=== PATIENT | female | born 1985 | race Caucasian/White ===

== ENCOUNTER 2019-10-21 11:34 | Emergency (ER) | payer OTHER ==
[2019-10-21 11:42] VITALS: RESP 18
--- NOTE | 2019-10-21 12:13 | ED ---
Abdominal Pain HPI - General Chief Complaint: Abdominal Pain Stated Complaint: hip pain Time Seen by Provider: 10/21/19 12:08 Source: patient Mode of arrival: ambulatory Limitations: no limitations - History of Present Illness Initial Comments: Patient is a 34-year-old female presenting to emergency Department with a chief complaint of right hip pain. Patient reports this started about 4 days ago with gradual increase in severity. States she also saw chiropractor who adjusted her hip with only moderate improvement in symptoms. States the pain is exacerbated when standing and ambulation. States the pain is alleviated at rest. Denies any direct trauma to the region. States she is very active and squats at least twice per week. Denies any numbness or tingling. Denies any urinary or vaginal symptoms. Denies any history of femoral or inguinal hernias. Denies saddle anesthesia. Denies back pain abdominal pain. - Related Data Home Medications Medication Instructions Recorded Confirmed No Known Home Medications 03/23/16 03/23/16 Allergies Allergy/AdvReac Type Severity Reaction Status Date / Time No Known Allergies Allergy Verified 10/21/19 11:42 Review of Systems ROS Statement: Those systems with pertinent positive or pertinent negative responses have been documented in the HPI. ROS Other: All systems not noted in ROS Statement are negative. Past Medical History Past Medical History: No Reported History Additional Past Medical History / Comment(s): Hep C History of Any Multi-Drug Resistant Organisms: MRSA Date of last positivie culture/infection: 2006 MDRO Source:: left leg Past Surgical History: No Surgical Hx Reported Additional Past Surgical History / Comment(s): lung surgery 2019 Past Psychological History: No Psychological Hx Reported Smoking Status: Former smoker Past Alcohol Use History: Occasional Past Drug Use History: Heroin General Exam Limitations: no limitations General appearance: alert, in no apparent distress Head exam: Present: atraumatic, normocephalic, normal inspection Eye exam: Present: normal appearance, PERRL, EOMI Pupils: Present: normal accommodation ENT exam: Present: normal exam, normal oropharynx, mucous membranes moist Neck exam: Present: normal inspection, full ROM Respiratory exam: Present: normal lung sounds bilaterally. Absent: respiratory distress, wheezes Cardiovascular Exam: Present: regular rate, normal rhythm, normal heart sounds GI/Abdominal exam: Present: soft. Absent: distended, hernia (No signs of a femoral or inguinal hernia. No inguinal lymph nodes appreciated.) Extremities exam: Present: normal inspection (No signs of swelling in the right groin or hip region. No other signs of trauma.), tenderness (Tenderness on the anterior medial aspect of the right hip.), normal capillary refill, other (+2 dorsalis pedis and posterior tibials bilaterally.). Absent: full ROM (Limited active range of motion with hip flexion due to pain. Full passive range of motion.), pedal edema, joint swelling, calf tenderness Back exam: Present: normal inspection, full ROM Neurological exam: Present: alert, oriented X3 Psychiatric exam: Present: normal affect, normal mood Skin exam: Present: warm, dry, intact, normal color Course Vital Signs 10/21/19 10/21/19 11:38 14:14 Temperature 98.7 F 98.3 F Pulse Rate 102 H 97 Respiratory 18 18 Rate Blood Pressure 119/72 122/68 O2 Sat by Pulse 98 98 Oximetry Medical Decision Making - Medical Decision Making Patient is a 34-year-old male presenting to the emergency room with a chief complaint of right hip pain. X-rays unremarkable. Patient was given Toradol for pain with improvement in symptoms and reevaluation. On exam patient has no signs of acute trauma, femoral hernias. Full passive range of motion. Limited active range of motion with right hip flexion due to the pain. Patient is very physically active. I suspect the symptoms are related to intensive physical workouts. Advised the patient to follow with PCP for possible physical therapy. Advised the patient to take anti-inflammatories for the pain and apply ice compress to the region. Advised her to avoid exercises for next week. Return parameters were thoroughly discussed with patient is understanding and agreeable. Case discussed with physician. Disposition Clinical Impression: Right hip tendinitis Disposition: HOME SELF-CARE Condition: Stable Instructions (If sedation given, give patient instructions): Tendinitis (ED) Additional Instructions: Apply ice compress an alternate between Tylenol and Motrin for pain control. Return to emergency department if symptoms worsen. Follow with primary care. Is patient prescribed a controlled substance at d/c from ED?: No Referrals: Domingo Ellison MD [Primary Care Provider] - 1-2 days Time of Disposition: 13:48
[2019-10-21] MEDS ORDERED: KETOROLAC 30 MG/ML 1 ML VIAL IM STA (12:26)
--- NOTE | 2019-10-21 12:47 | XR ---
EXAMINATION TYPE: XR Hip Complete RT DATE OF EXAM: 10/21/2019 COMPARISON: None HISTORY: Pain TECHNIQUE: 2 view right hip FINDINGS: Femoral head articulates with the acetabulum. Joint spaces preserved. No acute fractures or dislocations are evident. IMPRESSION: 1. Normal 2 view right hip
[2019-10-21 14:16] VITALS: BP 122/68; PULSE 97; TEMP 98.3
== END 2019-10-21 14:16 | disposition home or self-care (01) ==
LOC: EC 11:34
DX: M76.9 Unspecified enthesopathy, lower limb, excluding foot (principal); Z86.14 Personal history of Methicillin resistant Staphylococcus aureus infection; Z87.891 Personal history of nicotine dependence
CPT/HCPCS: 73502; 96372; 99284; J1885

== ENCOUNTER 2019-11-02 13:54 | Observation (INO) | payer OTHER ==
[2019-11-02] MEDS ORDERED: SODIUM CHLORIDE 0.9% 1,000 ML IV STA ×2 (14:25→15:19)
[2019-11-02] MEDS ORDERED: METOCLOPRAMIDE 5 MG/ML 2 ML VIAL IVP STA ×2 (14:25→16:55)
--- NOTE | 2019-11-02 14:52 | ED ---
Nausea/Vomiting/Diarrhea HPI - General Source: patient Mode of arrival: wheelchair Limitations: no limitations <Hilda Iglesias - Last Filed: 11/05/19 15:15> <Lucy Fields - Last Filed: 11/10/19 13:17> - General Chief complaint: Nausea/Vomiting/Diarrhea Stated complaint: 4weeks pg N/V Time Seen by Provider: 11/02/19 14:02 - History of Present Illness Initial comments: Patient is a 34-year-old female presenting to the emergency Department with complaints of severe nausea and vomiting for the past 4 days. She states that she just found out she was and has been trying to detox herself off of heroin as well. She states the last 4 days she has been vomiting and not able to hold anything down. She admits to some abdominal cramping but no severe pain, no vaginal bleeding. She states she took a home test. She denies any fever, chills, chest pain, shortness of breath. She has no further complaints at this time. (Hilda Iglesias) - Related Data Home Medications Medication Instructions Recorded Confirmed No Known Home Medications 03/23/16 11/02/19 Allergies Allergy/AdvReac Type Severity Reaction Status Date / Time No Known Allergies Allergy Verified 11/02/19 21:22 Review of Systems ROS Other: All systems not noted in ROS Statement are negative. <Hilda Iglesias - Last Filed: 11/05/19 15:15> ROS Other: All systems not noted in ROS Statement are negative. <Lucy Fields - Last Filed: 11/10/19 13:17> ROS Statement: Those systems with pertinent positive or pertinent negative responses have been documented in the HPI. Past Medical History Past Medical History: No Reported History Additional Past Medical History / Comment(s): Hep C History of Any Multi-Drug Resistant Organisms: MRSA Date of last positivie culture/infection: 2006 MDRO Source:: left leg Past Surgical History: No Surgical Hx Reported Additional Past Surgical History / Comment(s): lung surgery 2019 Past Psychological History: No Psychological Hx Reported Smoking Status: Former smoker Past Alcohol Use History: Occasional Past Drug Use History: Heroin, Marijuana - Past Family History family Family Medical History: No Reported History <Hilda Iglesias - Last Filed: 11/05/19 15:15> General Exam Limitations: no limitations <Hilda Iglesias - Last Filed: 11/05/19 15:15> - General Exam Comments Initial Comments: GENERAL: Patient looks, fatigued, and actively dry heaving in the ER. HEAD: Atraumatic, normocephalic. EYES: Pupils equal round and reactive to light, extraocular movements intact, sclera anicteric, conjunctiva are normal. ENT: TMs normal, nares patent, oropharynx clear without exudates. Dry mucous mem branes. NECK: Normal range of motion, supple without lymphadenopathy or JVD. LUNGS: Breath sounds clear to auscultation bilaterally and equal. No wheezes rales or rhonchi. HEART: Regular rate and rhythm without murmurs, rubs or gallops. ABDOMEN: Mild generalized abdominal tenderness, no specific pain in any quadrant. Soft, normoactive bowel sounds. No guarding, no rebound. No masses appreciated. : Deferred EXTREMITIES: Normal range of motion, no pitting or edema. No clubbing or cyanosis. NEUROLOGICAL: Cranial nerves II through XII grossly intact. Normal speech, normal gait. PSYCH: Normal mood, normal affect. SKIN: Warm, Dry, normal turgor, no rashes or lesions noted. (Hilda Iglesias) Course Vital Signs 11/02/19 11/02/19 11/02/19 13:59 14:30 17:07 Temperature 97.8 F Pulse Rate 83 69 86 Respiratory 20 26 H 22 Rate Blood Pressure 125/75 122/55 133/63 O2 Sat by Pulse 97 100 99 Oximetry 11/02/19 11/02/19 18:54 20:51 Temperature 99.4 F Pulse Rate 68 79 Respiratory 18 16 Rate Blood Pressure 119/70 103/66 O2 Sat by Pulse 100 98 Oximetry Medical Decision Making - Lab Data Result diagrams: 11/02/19 14:42 11/02/19 14:42 <Hilda Iglesias - Last Filed: 11/05/19 15:15> - Lab Data Result diagrams: 11/02/19 14:42 11/02/19 14:42 <Lucy Fields - Last Filed: 11/10/19 13:17> - Medical Decision Making Patient is a 34-year-old female here for nausea and vomiting 4 days. Patient was signed out to Dr. Fields pending US results. (Hilda Iglesias) I evaluated the patient myself. She does arrive and is given 2 doses of Reglan. She is given a popsicle and continues to vomit. Therefore she is given a dose of Zofran. The patient is sent for ultrasound. It does demonstrate a viable intrauterine with 6 weeks, 5 days gestational age. Heart rate is 127. I did discuss the case with Dr. Pedroza who recommended medical admission with her to consult. I discussed the case with sound physicians accepted admission. Patient is currently awaiting a bed on the floor (Lucy Fields) - Lab Data Lab Results 11/02/19 11/02/19 11/02/19 Range/Units 14:42 14:42 14:42 WBC 11.1 H (3.8-10.6) k/uL RBC 3.86 (3.80-5.40) m/uL Hgb 11.5 (11.4-16.0) gm/dL Hct 35.3 (34.0-46.0) % MCV 91.6 (80.0-100.0) fL MCH 29.7 (25.0-35.0) pg MCHC 32.4 (31.0-37.0) g/dL RDW 12.2 (11.5-15.5) % Plt Count 729 H (150-450) k/uL Neutrophils % 89 % Lymphocytes % 8 % Monocytes % 2 % Eosinophils % 0 % Basophils % 0 % Neutrophils # 9.8 H (1.3-7.7) k/uL Lymphocytes # 0.9 L (1.0-4.8) k/uL Monocytes # 0.2 (0-1.0) k/uL Eosinophils # 0.0 (0-0.7) k/uL Basophils # 0.0 (0-0.2) k/uL Sodium 133 L (137-145) mmol/L Potassium 4.2 (3.5-5.1) mmol/L Chloride 97 L (98-107) mmol/L Carbon Dioxide 20 L (22-30) mmol/L Anion Gap 16 mmol/L BUN 23 H (7-17) mg/dL Creatinine 0.55 (0.52-1.04) mg/dL Est GFR (CKD-EPI)AfAm >90 (>60 ml/min/1.73 sqM) Est GFR (CKD-EPI)NonAf >90 (>60 ml/min/1.73 sqM) Glucose 168 H (74-99) mg/dL Lactic Ac Sepsis Rflx Plasma Lactic Acid Dewayne 3.2 H* (0.7-2.0) mmol/L Calcium 9.8 (8.4-10.2) mg/dL Total Bilirubin 0.6 (0.2-1.3) mg/dL AST 21 (14-36) U/L ALT 13 (4-34) U/L Alkaline Phosphatase 73 (38-126) U/L Total Protein 8.1 (6.3-8.2) g/dL Albumin 4.3 (3.5-5.0) g/dL HCG, Quant 67710.6 mIU/mL Urine Color Urine Appearance (Clear) Urine pH (5.0-8.0) Ur Specific Ransom (1.001-1.035) Urine Protein (Negative) Urine Glucose (UA) (Negative) Urine Ketones (Negative) Urine Blood (Negative) Urine Nitrite (Negative) Urine Bilirubin (Negative) Urine Urobilinogen (<2.0) mg/dL Ur Leukocyte Esterase (Negative) Urine RBC (0-5) /hpf Urine WBC (0-5) /hpf Ur Squamous Epith Cells (0-4) /hpf Urine Bacteria (None) /hpf Urine Mucus (None) /hpf Urine Opiates Screen (NotDetected) Ur Oxycodone Screen (NotDetected) Urine Methadone Screen (NotDetected) Ur Propoxyphene Screen (NotDetected) Ur Barbiturates Screen (NotDetected) U Tricyclic Antidepress (NotDetected) Ur Phencyclidine Scrn (NotDetected) Ur Amphetamines Screen (NotDetected) U Methamphetamines Scrn (NotDetected) U Benzodiazepines Scrn (NotDetected) Urine Cocaine Screen (NotDetected) U Marijuana (THC) Screen (NotDetected) Blood Type Blood Type Recheck Bld Type Recheck Status 11/02/19 11/02/19 11/02/19 Range/Units 14:42 15:16 16:29 WBC (3.8-10.6) k/uL RBC (3.80-5.40) m/uL Hgb (11.4-16.0) gm/dL Hct (34.0-46.0) % MCV (80.0-100.0) fL MCH (25.0-35.0) pg MCHC (31.0-37.0) g/dL RDW (11.5-15.5) % Plt Count (150-450) k/uL Neutrophils % % Lymphocytes % % Monocytes % % Eosinophils % % Basophils % % Neutrophils # (1.3-7.7) k/uL Lymphocytes # (1.0-4.8) k/uL Monocytes # (0-1.0) k/uL Eosinophils # (0-0.7) k/uL Basophils # (0-0.2) k/uL Sodium (137-145) mmol/L Potassium (3.5-5.1) mmol/L Chloride (98-107) mmol/L Carbon Dioxide (22-30) mmol/L Anion Gap mmol/L BUN (7-17) mg/dL Creatinine (0.52-1.04) mg/dL Est GFR (CKD-EPI)AfAm (>60 ml/min/1.73 sqM) Est GFR (CKD-EPI)NonAf (>60 ml/min/1.73 sqM) Glucose (74-99) mg/dL Lactic Ac Sepsis Rflx Y Plasma Lactic Acid Dewayne (0.7-2.0) mmol/L Calcium (8.4-10.2) mg/dL Total Bilirubin (0.2-1.3) mg/dL AST (14-36) U/L ALT (4-34) U/L Alkaline Phosphatase (38-126) U/L Total Protein (6.3-8.2) g/dL Albumin (3.5-5.0) g/dL HCG, Quant mIU/mL Urine Color Yellow Urine Appearance Cloudy H (Clear) Urine pH 6.5 (5.0-8.0) Ur Specific Ransom 1.024 (1.001-1.035) Urine Protein 1+ H (Negative) Urine Glucose (UA) Negative (Negative) Urine Ketones 4+ H (Negative) Urine Blood Negative (Negative) Urine Nitrite Negative (Negative) Urine Bilirubin Negative (Negative) Urine Urobilinogen <2.0 (<2.0) mg/dL Ur Leukocyte Esterase Moderate H (Negative) Urine RBC 2 (0-5) /hpf Urine WBC 6 H (0-5) /hpf Ur Squamous Epith Cells 9 H (0-4) /hpf Urine Bacteria Rare H (None) /hpf Urine Mucus Rare H (None) /hpf Urine Opiates Screen Detected H (NotDetected) Ur Oxycodone Screen Not Detected (NotDetected) Urine Methadone Screen Not Detected (NotDetected) Ur Propoxyphene Screen Not Detected (NotDetected) Ur Barbiturates Screen Not Detected (NotDetected) U Tricyclic Antidepress Not Detected (NotDetected) Ur Phencyclidine Scrn Not Detected (NotDetected) Ur Amphetamines Screen Not Detected (NotDetected) U Methamphetamines Scrn Not Detected (NotDetected) U Benzodiazepines Scrn Not Detected (NotDetected) Urine Cocaine Screen Detected H (NotDetected) U Marijuana (THC) Screen Detected H (NotDetected) Blood Type A Positive Blood Type Recheck A Pos Bld Type Recheck Status No 11/02/19 Range/Units 17:35 WBC (3.8-10.6) k/uL RBC (3.80-5.40) m/uL Hgb (11.4-16.0) gm/dL Hct (34.0-46.0) % MCV (80.0-100.0) fL MCH (25.0-35.0) pg MCHC (31.0-37.0) g/dL RDW (11.5-15.5) % Plt Count (150-450) k/uL Neutrophils % % Lymphocytes % % Monocytes % % Eosinophils % % Basophils % % Neutrophils # (1.3-7.7) k/uL Lymphocytes # (1.0-4.8) k/uL Monocytes # (0-1.0) k/uL Eosinophils # (0-0.7) k/uL Basophils # (0-0.2) k/uL Sodium (137-145) mmol/L Potassium (3.5-5.1) mmol/L Chloride (98-107) mmol/L Carbon Dioxide (22-30) mmol/L Anion Gap mmol/L BUN (7-17) mg/dL Creatinine (0.52-1.04) mg/dL Est GFR (CKD-EPI)AfAm (>60 ml/min/1.73 sqM) Est GFR (CKD-EPI)NonAf (>60 ml/min/1.73 sqM) Glucose (74-99) mg/dL Lactic Ac Sepsis Rflx Plasma Lactic Acid Dewayne 1.2 (0.7-2.0) mmol/L Calcium (8.4-10.2) mg/dL Total Bilirubin (0.2-1.3) mg/dL AST (14-36) U/L ALT (4-34) U/L Alkaline Phosphatase (38-126) U/L Total Protein (6.3-8.2) g/dL Albumin (3.5-5.0) g/dL HCG, Quant mIU/mL Urine Color Urine Appearance (Clear) Urine pH (5.0-8.0) Ur Specific Ransom (1.001-1.035) Urine Protein (Negative) Urine Glucose (UA) (Negative) Urine Ketones (Negative) Urine Blood (Negative) Urine Nitrite (Negative) Urine Bilirubin (Negative) Urine Urobilinogen (<2.0) mg/dL Ur Leukocyte Esterase (Negative) Urine RBC (0-5) /hpf Urine WBC (0-5) /hpf Ur Squamous Epith Cells (0-4) /hpf Urine Bacteria (None) /hpf Urine Mucus (None) /hpf Urine Opiates Screen (NotDetected) Ur Oxycodone Screen (NotDetected) Urine Methadone Screen (NotDetected) Ur Propoxyphene Screen (NotDetected) Ur Barbiturates Screen (NotDetected) U Tricyclic Antidepress (NotDetected) Ur Phencyclidine Scrn (NotDetected) Ur Amphetamines Screen (NotDetected) U Methamphetamines Scrn (NotDetected) U Benzodiazepines Scrn (NotDetected) Urine Cocaine Screen (NotDetected) U Marijuana (THC) Screen (NotDetected) Blood Type Blood Type Recheck Bld Type Recheck Status Disposition <Hilda Iglesias - Last Filed: 11/05/19 15:15> Is patient prescribed a controlled substance at d/c from ED?: No Decision to Admit Reason: Admit from EC Decision Date: 11/02/19 Decision Time: 20:22 <Lucy Fields - Last Filed: 11/10/19 13:17> Clinical Impression: Intractable nausea and vomiting, First trimester , Polysubstance abuse Disposition: ADMITTED IP TO THIS HOSP Condition: Stable
[2019-11-02 14:55] LABS: Basophils % (A) 0 %; Eosinophils % (A) 0 %; HCT 35.3 % (34.0-46.0); HGB 11.5 gm/dL (11.4-16.0); Lymphocytes # (A) 0.9 k/uL (1.0-4.8); Lymphocytes % (A) 8 %; MCH 29.7 pg (25.0-35.0); MCHC 32.4 g/dL (31.0-37.0); MCV 91.6 fL (80.0-100.0); Mean Platelet Volume 6.7; Monocytes # (A) 0.2 k/uL (0-1.0); Monocytes % (A) 2 %; Neutrophils # (A) 9.8 k/uL (1.3-7.7); Neutrophils % (A) 89 %; Platelet Count 729 k/uL (150-450); RBC 3.86 m/uL (3.80-5.40); RDW 12.2 % (11.5-15.5); WBC 11.1 k/uL (3.8-10.6)
[2019-11-02 15:04] LABS: ALT 13 U/L (4-34); AST 21 U/L (14-36); African American GFR (CKD) >90 (>60 ml/min/1.73 sqM); Albumin 4.3 g/dL (3.5-5.0); Alkaline Phosphatase 73 U/L (38-126); Anion Gap 16 mmol/L; Blood Urea Nitrogen 23 mg/dL (7-17); Calcium 9.8 mg/dL (8.4-10.2); Carbon Dioxide 20 mmol/L (22-30); Chloride 97 mmol/L (98-107); Glucose 168 mg/dL (74-99); Non-African American GFR(CKD) >90 (>60 ml/min/1.73 sqM); Potassium 4.2 mmol/L (3.5-5.1); Sodium 133 mmol/L (137-145); Total Bilirubin 0.6 mg/dL (0.2-1.3); Total Protein 8.1 g/dL (6.3-8.2)
[2019-11-02 16:18] LABS: HCG,Quantitative Serum 83013.6 mIU/mL
[2019-11-02 16:57] LABS: Appearance,Urine Cloudy (Clear); Bacteria,Urine Rare /hpf; Bilirubin,Urine Negative (Negative); Blood,Urine Negative (Negative); Color,Urine Yellow; Glucose,Urine (UA) Negative (Negative); Leukocyte Esterase,Urine Moderate (Negative); Mucus,Urine Rare /hpf; Nitrite,Urine Negative (Negative); PH, Urine 6.5 (5.0-8.0); Protein,Urine 1+ (Negative); RBC,Urine 2 /hpf (0-5); Specific Gravity,Urine 1.024 (1.001-1.035); Squamous Epithelial Cell,Urine 9 /hpf (0-4); Urobilinogen,Urine <2.0 mg/dL (<2.0); WBC,Urine 6 /hpf (0-5)
[2019-11-02 17:12] LABS: Cocaine Screen,Urine Detected (NotDetected); Opiate Screen,Urine Detected (NotDetected); Phencyclidine Screen,Urine Not Detected (NotDetected); Urn Cannabinoid Scrn Detected (NotDetected)
[2019-11-02 17:13] LABS: Amphetamine Screen,Urine Not Detected (NotDetected); Barbiturate Screen,Urine Not Detected (NotDetected); Benzodiazepines Screen,Urine Not Detected (NotDetected); Methadone Screen, Urine Not Detected (NotDetected); Oxycodone Screen, Urine Not Detected (NotDetected); Tricyclic Antidepressant,Urine Not Detected (NotDetected)
[2019-11-02 17:21] LABS: Ketones,Urine 4+ (Negative)
[2019-11-02] MEDS ORDERED: ONDANSETRON 4 MG/2 ML VIAL IVP STA (18:05)
--- NOTE | 2019-11-02 19:24 | US ---
EXAMINATION TYPE: Transabdominal DATE OF EXAM: 11/02/2019 7:13 PM COMPARISON: NONE CLINICAL HISTORY: n/v, cramping, unsure dates. EXAM PERFORMED: Transabdominal (TA) EXAM MEASUREMENTS: GESTATIONAL AGE / DATING Physician Established: Not yet established Dates by LMP: LMP unknown Dates by First Scan: No previous this is first scan Dates by Current Scan for: (6 weeks/5 days) EDC: 06/22/2020 MATERNAL ANATOMY Uterus: 9.5 x 5.7 x 7.5 cm Right Ovary: 3.2 x .8 x 1.8 cm Left Ovary: 3.7 x 1.8 x 2.4 cm Post CDS / Adnexa: wnl Presence of free fluid: no Presence of corpus luteal cyst: yes left Presence of subchorionic bleed: no GESTATION / SURVEY CRL: 0.81 cm (6 weeks/5 days Yolk Sac (normal less than 6mm): 3mm Heart Rate: 127 bpm Rhythm: Normal IUP: Viable IUP Beta HcG (if available): Not available at this time IMPRESSION: The heart rate is 127. No complicating process seen. the ultrasound gestational age is 6 weeks and 5 days.
[2019-11-02] MEDS ORDERED: NALOXONE 0.4 MG/ML 1 ML VIAL IV PRN (20:23)
[2019-11-02] MEDS: SODIUM CHLORIDE 0.9% 1,000 ML IV SCH (20:48)
[2019-11-02 21:42] VITALS: RESP 18
[2019-11-02] MEDS ORDERED: ONDANSETRON 4 MG/2 ML VIAL IVP PRN (22:34)
[2019-11-02] MEDS ORDERED: PYRIDOXINE 50 MG TAB PO PRN (23:27)
--- NOTE | 2019-11-02 23:46 | P.HPIM ---
History of Present Illness H&P Date: 11/02/19 Chief Complaint: repeated nausea and vomiting 34 year old female with polysubstance abuse . and Hepatitis C patient has just found out to be preganant , which was confirmed with US in the ED , showing at 6 w and 5 days. patient reports 5 day history of severe nausea and vomiting, she cant keep anything down, with decrease urine output, this is her second , during her first no similar nausea and vomtiing was experienced, was uncomplicated, healthy baby girl adopted by her mother. this was not desired or planned for, she knows the father who is not supportive at this time, but she wants to continue the . she admits to polysubstance abuse, and wants to detox. her last usage was today when she used heroin, she also tested positive for cocaine and marijuana. she denies smoking and alcohol otherwise she denies any fever, chills, sick contact, recent travel, abd pain , chest pain , trouble breathing, or coughing. denies any vaginal discharge or bleeding. in the ED , she had elevated lactic acid and ketones in the urine even after hydration . patient continued to have refractory nausea and vomiting , admitted due to dehydration. Review of Systems Pertinent positives as noted in HPI. All other systems were reviewed and are negative Past Medical History Past Medical History: No Reported History Additional Past Medical History / Comment(s): Hep C, endocarditis History of Any Multi-Drug Resistant Organisms: MRSA Date of last positivie culture/infection: 2006 MDRO Source:: left leg Past Surgical History: No Surgical Hx Reported Additional Past Surgical History / Comment(s): lung surgery 2019 Past Anesthesia/Blood Transfusion Reactions: No Reported Reaction Past Psychological History: No Psychological Hx Reported Smoking Status: Never smoker Past Alcohol Use History: Occasional Past Drug Use History: Heroin, Marijuana Additional Drug Use History / Comment(s): last used herion morning 11/02/19 - Past Family History family Family Medical History: No Reported History Medications and Allergies Home Medications Medication Instructions Recorded Confirmed Type No Known Home Medications 03/23/16 11/02/19 History Allergies Allergy/AdvReac Type Severity Reaction Status Date / Time No Known Allergies Allergy Verified 11/02/19 21:22 Physical Exam Vitals: Vital Signs Temp Pulse Pulse Resp BP BP Pulse Ox 11/02/19 21:41 99.6 F 76 18 101/50 100 06/14/20 20:51 99.4 F 79 16 103/66 98 11/02/19 18:54 68 18 119/70 100 11/02/19 17:07 86 22 133/63 99 11/02/19 14:30 69 26 H 122/55 100 11/02/19 13:59 97.8 F 83 20 125/75 97 Intake and Output 11/02/19 11/02/19 11/02/19 06:59 14:59 22:59 Other: Voiding Method Toilet Weight 61.235 kg Constitutional: No acute distress, conversant, pleasant Eyes: Anicteric sclerae, moist conjunctiva, Pupils equal round reactive to light ENMT: NC/AT Oropharynx clear, no erythema, or exudates Neck: Supple, FROM, no masses, or JVD No carotid bruits No thyromegaly Lungs: Clear to auscultation Clear to percussion Normal respiratory effort, no accessory muscle use Cardiovascular: Heart regular in rate and rhythm, No murmurs, gallops, or rubs No peripheral edema Abdominal: Soft Nontender, no guarding, rebound or rigidity Abdomen moving with respiration Normoactive bowel sounds No hepatomegaly, No splenomegaly No palpable mass No abdominal wall hernia noted Skin: Normal temperature, tone, texture, turgor No induration No subcutaneous nodules No rash, lesions No ulcers Extremities: No digital cyanosis No clubbing Pedal pulses intact and symmetrical Radial pulses intact and symmetrical No calf tenderness Psychiatric: Alert and oriented to person, place and time Appropriate affect fair judgement Neuro Muscles Strength 5/5 in all 4 extremities Sensation to light touch grossly present throughout Cranial nerves II-XII grossly intact No focal sensory deficits Lymphatics: no palpable cervical or supraclavicular , or inguinal lymph nodes Results CBC & Chem 7: 11/02/19 14:42 11/02/19 14:42 Labs: Abnormal Lab Results - Last 24 Hours (Table) 11/02/19 11/02/19 11/02/19 Range/Units 14:42 14:42 14:42 WBC 11.1 H (3.8-10.6) k/uL Plt Count 729 H (150-450) k/uL Neutrophils # 9.8 H (1.3-7.7) k/uL Lymphocytes # 0.9 L (1.0-4.8) k/uL Sodium 133 L (137-145) mmol/L Chloride 97 L (98-107) mmol/L Carbon Dioxide 20 L (22-30) mmol/L BUN 23 H (7-17) mg/dL Glucose 168 H (74-99) mg/dL Plasma Lactic Acid Dewayne 3.2 H* (0.7-2.0) mmol/L Urine Appearance (Clear) Urine Protein (Negative) Urine Ketones (Negative) Ur Leukocyte Esterase (Negative) Urine WBC (0-5) /hpf Ur Squamous Epith Cells (0-4) /hpf Urine Bacteria (None) /hpf Urine Mucus (None) /hpf Urine Opiates Screen (NotDetected) Urine Cocaine Screen (NotDetected) U Marijuana (THC) Screen (NotDetected) 11/02/19 Range/Units 16:29 WBC (3.8-10.6) k/uL Plt Count (150-450) k/uL Neutrophils # (1.3-7.7) k/uL Lymphocytes # (1.0-4.8) k/uL Sodium (137-145) mmol/L Chloride (98-107) mmol/L Carbon Dioxide (22-30) mmol/L BUN (7-17) mg/dL Glucose (74-99) mg/dL Plasma Lactic Acid Dewayne (0.7-2.0) mmol/L Urine Appearance Cloudy H (Clear) Urine Protein 1+ H (Negative) Urine Ketones 4+ H (Negative) Ur Leukocyte Esterase Moderate H (Negative) Urine WBC 6 H (0-5) /hpf Ur Squamous Epith Cells 9 H (0-4) /hpf Urine Bacteria Rare H (None) /hpf Urine Mucus Rare H (None) /hpf Urine Opiates Screen Detected H (NotDetected) Urine Cocaine Screen Detected H (NotDetected) U Marijuana (THC) Screen Detected H (NotDetected) Thrombosis Risk Factor Assmnt - Choose All That Apply Any of the Below Risk Factors Present?: Yes Each Factor Represents 1 point: or Other Risk Factors: No Other congenital or acquired thrombophilia - If yes, enter type in comment: No Thrombosis Risk Factor Assessment Total Risk Factor Score: 1 Thrombosis Risk Factor Assessment Level: Low Risk Assessment and Plan Assessment: 34 year old female with polysubstance abuse, and Hep C. comes in with hyperemesis gravidarum , while trying to detox from heroin, last usage was today. she is having severe nausea and vomiting for the past 4 days, could not keep anything down. patient was found to be dehydrated admitted for IVF hydration and symptomatic control hyperemesis gravidarum polysubstance abuse 6.5 weeks lactic acidosis resolved supportive care counseled to quit drug of abuse folic acid vitamin Pyridoxine for nausea patient counseled regarding possible risk of teratogenesis with zofran with less than 10 weeks , patient continues to request zofran claiming its the only thing helping, i will try to avoid it unless nothing else working follow up labs IVF hydration lactic acidosis resolved DVT PPX heparin sc tid full code anticipated length of stay < 2 midnights anticipated discharge to home OB consultation
[2019-11-03] MEDS: METOCLOPRAMIDE 5 MG/ML 2 ML VIAL IVP PRN ×2 (00:23→10:51)
[2019-11-03] MEDS: diphenhydrAMINE 50 MG/ML 1 ML VIAL IVP PRN ×2 (04:24→09:59)
[2019-11-03] MEDS ORDERED: PROMETHAZINE INJ 6.25 MG in SODIUM CHLORIDE 0.9% 50 ML IVPB PRN (07:11)
--- NOTE | 2019-11-03 07:23 | P.OBCN ---
History of Present Illness Consult date: 11/03/19 Reason for consult: other (hyperemesis gravidarum with intractable N/V) Chief complaint: intractable N/V History of present illness: 34-year-old presents at 16 weeks and 5 days with hyperemesis. She's been nauseous and vomiting over the last few weeks but over the last 4 days she's been unable to keep anything down and vomiting almost constantly. She is also an IV drug user, uses heroin 3 times a day. Her drug screen tested positive for opiates, cocaine, marijuana. She has been given Zofran and Reglan was little to no relief. I did order Benadryl 25 mg IV and then to keep her from vomiting for about 2 hours, which is the longest stretch she's had since being admitted last night. Review of Systems All systems: negative Constitutional: Denies chills, Denies fever Eyes: denies blurred vision, denies pain Ears, nose, mouth and throat: Denies headache, Denies sore throat Cardiovascular: Denies chest pain, Denies shortness of breath Respiratory: Denies cough Gastrointestinal: Denies abdominal pain, Denies diarrhea, Denies nausea, Denies vomiting Genitourinary: Denies dysuria, Denies hematuria Musculoskeletal: Denies myalgias Integumentary: Denies pruritus, Denies rash Neurological: Denies numbness, Denies weakness Psychiatric: Denies anxiety, Denies depression Endocrine: Denies fatigue, Denies weight change Past Medical History Past Medical History: No Reported History Additional Past Medical History / Comment(s): Hep C, endocarditis. Obstetric history: First was a vaginal delivery 7 years ago. That daughter is now with her mother, her mother adopted that child due to the patient's history of addiction. This is her second and is unplanned. She is not sure whether she is currently keep this baby or terminate. History of Any Multi-Drug Resistant Organisms: MRSA Year Discovered:: 2006 MDRO Source:: left leg Past Surgical History: No Surgical Hx Reported Additional Past Surgical History / Comment(s): lung surgery 2019-several chest tubes Past Anesthesia/Blood Transfusion Reactions: No Reported Reaction Past Psychological History: No Psychological Hx Reported Smoking Status: Never smoker Past Alcohol Use History: Occasional Past Drug Use History: Heroin, Marijuana Additional Drug Use History / Comment(s): last used herion morning 11/02/19 - Past Family History family Family Medical History: No Reported History Medications and Allergies Home Medications Medication Instructions Recorded Confirmed Type No Known Home Medications 03/23/16 11/02/19 History Allergies Allergy/AdvReac Type Severity Reaction Status Date / Time No Known Allergies Allergy Verified 11/02/19 21:22 Exam Osteopathic Statement: *. No significant issues noted on an osteopathic structural exam other than those noted in the History and Physical/Consult. Vital Signs Temp Pulse Pulse Resp BP BP Pulse Ox 11/03/19 03:10 99.1 F 74 18 128/75 98 11/03/19 00:19 98.0 F 68 18 100/52 100 11/02/19 21:41 99.6 F 76 18 101/50 100 11/02/19 20:51 99.4 F 79 16 103/66 98 11/02/19 18:54 68 18 119/70 100 11/02/19 17:07 86 22 133/63 99 11/02/19 14:30 69 26 H 122/55 100 11/02/19 13:59 97.8 F 83 20 125/75 97 Intake and Output 11/02/19 11/03/19 11/03/19 22:59 06:59 14:59 Other: Voiding Method Toilet Toilet # Voids 1 Heart: Regular rhythm Lungs: Clear to incision bilateral Abdomen: Soft, nontender Extremities: Negative Homans sign Results Result Diagrams: 11/02/19 14:42 11/02/19 14:42 Abnormal Lab Results - Last 24 Hours (Table) 11/02/19 11/02/19 11/02/19 Range/Units 14:42 14:42 14:42 WBC 11.1 H (3.8-10.6) k/uL Plt Count 729 H (150-450) k/uL Neutrophils # 9.8 H (1.3-7.7) k/uL Lymphocytes # 0.9 L (1.0-4.8) k/uL Sodium 133 L (137-145) mmol/L Chloride 97 L (98-107) mmol/L Carbon Dioxide 20 L (22-30) mmol/L BUN 23 H (7-17) mg/dL Glucose 168 H (74-99) mg/dL Plasma Lactic Acid Dewayne 3.2 H* (0.7-2.0) mmol/L Urine Appearance (Clear) Urine Protein (Negative) Urine Ketones (Negative) Ur Leukocyte Esterase (Negative) Urine WBC (0-5) /hpf Ur Squamous Epith Cells (0-4) /hpf Urine Bacteria (None) /hpf Urine Mucus (None) /hpf Urine Opiates Screen (NotDetected) Urine Cocaine Screen (NotDetected) U Marijuana (THC) Screen (NotDetected) 11/02/19 Range/Units 16:29 WBC (3.8-10.6) k/uL Plt Count (150-450) k/uL Neutrophils # (1.3-7.7) k/uL Lymphocytes # (1.0-4.8) k/uL Sodium (137-145) mmol/L Chloride (98-107) mmol/L Carbon Dioxide (22-30) mmol/L BUN (7-17) mg/dL Glucose (74-99) mg/dL Plasma Lactic Acid Dewayne (0.7-2.0) mmol/L Urine Appearance Cloudy H (Clear) Urine Protein 1+ H (Negative) Urine Ketones 4+ H (Negative) Ur Leukocyte Esterase Moderate H (Negative) Urine WBC 6 H (0-5) /hpf Ur Squamous Epith Cells 9 H (0-4) /hpf Urine Bacteria Rare H (None) /hpf Urine Mucus Rare H (None) /hpf Urine Opiates Screen Detected H (NotDetected) Urine Cocaine Screen Detected H (NotDetected) U Marijuana (THC) Screen Detected H (NotDetected) Assessment and Plan (1) Intractable nausea and vomiting Current Visit: Yes Status: Acute Code(s): R11.2 - NAUSEA WITH VOMITING, UNSPECIFIED SNOMED Code(s): 447368915 (2) Hyperemesis gravidarum Current Visit: Yes Status: Acute Code(s): O21.0 - MILD HYPEREMESIS GRAVIDARUM SNOMED Code(s): 94107960 (3) First trimester Current Visit: Yes Status: Acute Code(s): Z34.91 - ENCNTR FOR SUPRVSN OF NORMAL PREG, UNSP, FIRST TRIMESTER SNOMED Code(s): 67333846 (4) Polysubstance abuse Current Visit: Yes Status: Acute Code(s): F19.10 - OTHER PSYCHOACTIVE SUBSTANCE ABUSE, UNCOMPLICATED SNOMED Code(s): 543216403 Plan: 1. I added diphenhydramine 25 mg IV to her regimen last night which did improve her nausea somewhat. She is not due for more of that for another hour and a half and is speaking a bile right now. I will add Phenergan 6.25 mg IV every 6 hours. 2. I discussed with the patient whether or not she was given to keep this baby or terminate. If she does keep the child she is very high risk and will need to be seen in the high-risk clinic. Delivery services for her regular office as informed numbers and contact information for she could get a termination if that is what she deems necessary. 3. I will also check a TSH as this is something that can contribute to hyperemesis
[2019-11-03 08:05] VITALS: BP 125/70; PULSE 62; TEMP 98.4
[2019-11-03] MEDS: SODIUM CHLORIDE 0.9% 1,000 ML IV SCH (08:37)
[2019-11-03] MEDS ORDERED: PRENATAL VIT-IRON-FOLIC ACID 1 EACH CAP PO SCH (09:00)
--- NOTE | 2019-11-03 10:58 | P.PN ---
Subjective Patient is still feeling very nauseous. She is unable to keep anything down. Objective - Vital Signs Vital signs: Vital Signs Temp 98.4 F 11/03/19 08:00 Pulse 62 11/03/19 08:00 Resp 18 11/03/19 08:00 BP 125/70 11/03/19 08:00 Pulse Ox 100 11/03/19 08:00 Intake & Output 11/02/19 11/03/19 11/03/19 18:59 06:59 18:59 Weight 61.235 kg Other: Voiding Method Toilet Toilet # Voids 1 - Exam General: The patient is awake and alert, in no distress Eye: there is normal conjunctiva bilaterally. Neck: The neck is supple, there is no JVD. Cardiovascular: Normal S1-S2, no S3-S4, no murmurs. Respiratory: Lungs clear to auscultation bilaterally Gastrointestinal: Abdomen is soft, nontender Musculoskeletal: There is no pedal edema. Neurological:. Speech is normal. Skin: Skin is warm and dry - Labs CBC & Chem 7: 11/02/19 14:42 11/02/19 14:42 Labs: Abnormal Lab Results - Last 24 Hours (Table) 11/02/19 11/02/19 11/02/19 Range/Units 14:42 14:42 14:42 WBC 11.1 H (3.8-10.6) k/uL Plt Count 729 H (150-450) k/uL Neutrophils # 9.8 H (1.3-7.7) k/uL Lymphocytes # 0.9 L (1.0-4.8) k/uL Sodium 133 L (137-145) mmol/L Chloride 97 L (98-107) mmol/L Carbon Dioxide 20 L (22-30) mmol/L BUN 23 H (7-17) mg/dL Glucose 168 H (74-99) mg/dL Plasma Lactic Acid Dewayne 3.2 H* (0.7-2.0) mmol/L Urine Appearance (Clear) Urine Protein (Negative) Urine Ketones (Negative) Ur Leukocyte Esterase (Negative) Urine WBC (0-5) /hpf Ur Squamous Epith Cells (0-4) /hpf Urine Bacteria (None) /hpf Urine Mucus (None) /hpf Urine Opiates Screen (NotDetected) Urine Cocaine Screen (NotDetected) U Marijuana (THC) Screen (NotDetected) 11/02/19 Range/Units 16:29 WBC (3.8-10.6) k/uL Plt Count (150-450) k/uL Neutrophils # (1.3-7.7) k/uL Lymphocytes # (1.0-4.8) k/uL Sodium (137-145) mmol/L Chloride (98-107) mmol/L Carbon Dioxide (22-30) mmol/L BUN (7-17) mg/dL Glucose (74-99) mg/dL Plasma Lactic Acid Dewayne (0.7-2.0) mmol/L Urine Appearance Cloudy H (Clear) Urine Protein 1+ H (Negative) Urine Ketones 4+ H (Negative) Ur Leukocyte Esterase Moderate H (Negative) Urine WBC 6 H (0-5) /hpf Ur Squamous Epith Cells 9 H (0-4) /hpf Urine Bacteria Rare H (None) /hpf Urine Mucus Rare H (None) /hpf Urine Opiates Screen Detected H (NotDetected) Urine Cocaine Screen Detected H (NotDetected) U Marijuana (THC) Screen Detected H (NotDetected) Assessment and Plan Assessment: 34 year old female with polysubstance abuse, and chronic Hep C. comes in with hyperemesis gravidarum , while trying to detox from heroin. she is having severe nausea and vomiting for the past 4 days, could not keep anything down. patient was found to be dehydrated admitted for IVF hydration and symptomatic control hyperemesis gravidarum polysubstance abuse 6.5 weeks lactic acidosis resolved supportive care counseled to quit drug of abuse folic acid vitamin Reglan and Phenergan as needed for nausea patient counseled regarding possible risk of teratogenesis with zofran with less than 10 weeks Seen and evaluated by OB, appreciate recommendation follow up labs IVF hydration lactic acidosis resolved DVT PPX heparin sc tid full code anticipated length of stay < 2 midnights anticipated discharge to home
--- NOTE | 2019-11-03 12:21 | P.DS ---
Providers Date of admission: 11/02/19 20:23 Attending physician: Saritha Hendrickson MD Consults: 11/02/19 20:25 Consult Physician Routine Consulting Provider: Dorcas Pedroza Consult Reason/Comments: intractable n/v, first trimester Do you want consulting provider notified?: Already Contacted Primary care physician: Domingo Ellison [facility] Course: 34 year old female with polysubstance abuse, and chronic Hep C. comes in with hyperemesis gravidarum , while trying to detox from heroin. she is having severe nausea and vomiting for the past 4 days, could not keep anything down. patient was found to be dehydrated admitted to the observation unit for IVF hydration and symptomatic control. hyperemesis gravidarum polysubstance abuse 6.5 weeks lactic acidosis resolved Patient was seen and evaluated by OB. This morning when I saw her she was uncomfortable but couple hours later she informed her nurse that she is feeling a lot better and requesting to be discharged. She was counseled extensively regarding drug use. She will follow-up with her PCP and OB as directed. For further details about this hospitalization please refer to the electronic chart. Patient Condition at Discharge: Stable Plan - Discharge Summary Discharge Rx Participant: No New Discharge Prescriptions: No Action No Known Home Medications Discharge Medication List No Known Home Medications 03/23/16 [History] Follow up Appointment(s)/Referral(s): Domingo Ellison MD [REFERRING] - 1-2 days Discharge Disposition: HOME SELF-CARE
[2019-11-03 13:32] LABS: T4, Free (Free Thyroxine) 1.33 ng/dL (0.78-2.19)
== END 2019-11-03 12:25 | disposition home or self-care (01) ==
LOC: EC 13:54 → 1SOBS 20:23
PROVIDERS: ADMIT Internal Medicine; ATTEND Internal Medicine
DX: O21.1 Hyperemesis gravidarum with metabolic disturbance (principal); O99.281 Endocrine, nutritional and metabolic diseases complicating pregnancy, first trimester; E86.0 Dehydration; O99.321 Drug use complicating pregnancy, first trimester; F11.10 Opioid abuse, uncomplicated; F14.10 Cocaine abuse, uncomplicated; F12.10 Cannabis abuse, uncomplicated; O98.411 Viral hepatitis complicating pregnancy, first trimester; B18.2 Chronic viral hepatitis C; Z3A.01 Less than 8 weeks gestation of pregnancy; Z03.818 Encounter for observation for suspected exposure to other biological agents ruled out; Z86.14 Personal history of Methicillin resistant Staphylococcus aureus infection; Z98.890 Other specified postprocedural states; Z87.891 Personal history of nicotine dependence; Z86.79 Personal history of other diseases of the circulatory system; Z71.51 Drug abuse counseling and surveillance of drug abuser
CPT/HCPCS: 96365; 96375 ×2; 96376 ×3; 96361; 99285; 36415; 86900; 86901; 84439; 80053; 83605; 84443; 85025; 81001; 84702; 82105; 80306; 76801; G0378 ×2; G0480; U0003; J1200; J2550; J2765 ×2; J2405; 80320

== ENCOUNTER 2019-12-14 08:30 | Inpatient (IN) | payer OTHER ==
--- NOTE | 2019-12-14 08:44 | ED ---
Neck Injury/Pain HPI <Jacob Ibanez - Last Filed: 12/14/19 12:40> - General Mode of arrival: ambulatory Limitations: no limitations <Lazara Kowalski - Last Filed: 12/14/19 13:34> - General Chief Complaint: Neck Pain/Injury Stated Complaint: lump on neck Time Seen by Provider: 12/14/19 08:35 - History of Present Illness Initial Comments: 34-year-old female who is currently 12 weeks she is also in IV drug use patient with last use of heroin one week ago in the right side of anterior neck. Patient states that for the past few days she has had right-sided neck swelling that has been worsening since yesterday evening. Patient states that one week ago she injected heroin into the neck in that area. Patient is concerned she was developing an abscess she denies any fever or chills general malaise. Patient denies any drainage from the area or redness noted. Patient denies additional complaints. Patient denies any known thyroid disorder, fatigue, hair loss. Upon arrival patient appears nontoxic in no acute distress. (Lazara Kowalski) - Related Data Home Medications Medication Instructions Recorded Confirmed Amoxicillin 500 mg PO ONCE 12/14/19 12/14/19 Ibuprofen [Motrin Ib] 200 mg PO Q8H PRN 12/14/19 12/14/19 Allergies Allergy/AdvReac Type Severity Reaction Status Date / Time No Known Allergies Allergy Verified 12/14/19 09:49 Review of Systems ROS Other: All systems not noted in ROS Statement are negative. <Jacob Ibanez - Last Filed: 12/14/19 12:40> ROS Other: All systems not noted in ROS Statement are negative. <Lazara Kowalski - Last Filed: 12/14/19 13:34> ROS Statement: Those systems with pertinent positive or pertinent negative responses have been documented in the HPI. Past Medical History Past Medical History: No Reported History Additional Past Medical History / Comment(s): Hep C History of Any Multi-Drug Resistant Organisms: MRSA Date of last positivie culture/infection: 2006 MDRO Source:: left leg Past Surgical History: No Surgical Hx Reported Additional Past Surgical History / Comment(s): lung surgery 2019 Past Anesthesia/Blood Transfusion Reactions: No Reported Reaction Past Psychological History: No Psychological Hx Reported Smoking Status: Never smoker Past Alcohol Use History: Occasional Past Drug Use History: Heroin, Marijuana - Past Family History family Family Medical History: No Reported History <Lazara Kowalski - Last Filed: 12/14/19 13:34> General Exam Limitations: no limitations <Lazara Kowalski - Last Filed: 12/14/19 13:34> - General Exam Comments Initial Comments: General: The patient is awake and alert, in no distress Eye: +3 mm pupils are equal, round and reactive to light, extra-ocular movements are intact. No nystagmus. There is normal conjunctiva bilaterally. No signs of icterus. Ears, nose, mouth and throat: There are moist mucous membranes and no oral lesions. Neck: The neck is supple, there is no tenderness or JVD. Cardiovascular: There is a regular rate and rhythm. No murmur, rub or gallop is appreciated. Respiratory: Lungs are clear to auscultation, respirations are non-labored, breath sounds are equal. No wheezes, stridor, rales, or rhonchi. No tripoding no drooling tolerating oral secretions Gastrointestinal: Soft, non-distended, non-tender abdomen without masses or organomegaly noted. There is no rebound or guarding present. Musculoskeletal: Normal ROM, no tenderness. Strength 5/5. Sensation intact. Radial pulses equal bilaterally 2+. Neurological: A&O x 3. CN II-XII intact grossly, There are no obvious motor or sensory deficits. Coordination appears grossly intact. Speech is normal. Skin: Skin is warm and dry and no rashes or lesions are noted. 5cm solid mass palpable of the right side of mid neck. no ecchymosis, no break in skin no redness, tender to touch. Psychiatric: Cooperative, appropriate mood & affect, normal judgment. (Lazara Kowalski) Course Vital Signs 12/14/19 12/14/19 12/14/19 08:33 11:17 11:30 Temperature 98.4 F Pulse Rate 87 85 80 Respiratory 18 18 18 Rate Blood Pressure 110/71 102/58 102/58 O2 Sat by Pulse 100 98 99 Oximetry 12/14/19 12/14/19 12:00 13:00 Temperature Pulse Rate 76 83 Respiratory 18 18 Rate Blood Pressure 102/59 100/59 O2 Sat by Pulse 100 100 Oximetry Medical Decision Making - Lab Data Result diagrams: 12/14/19 09:25 12/14/19 09:25 <Jacob Ibanez - Last Filed: 12/14/19 12:40> - Lab Data Result diagrams: 12/14/19 09:25 12/14/19 09:25 <Lazara Kowalski - Last Filed: 12/14/19 13:34> - Medical Decision Making 34-year-old female with 24-48 hours of neck swelling. She does admit to injecting heroin into the right side of her neck approximately one week ago. This is a nonpulsatile mass. His fine and indurated. There is no central fluct uance. There is no surrounding erythema or warmth. CT is performed which shows soft tissue mass adjacent to the sternocleidomastoid. She is observed in the emergency department without change in this mass. She has no stridor or respiratory distress. She is afebrile with otherwise well-appearing. Differential includes hematoma, versus infection. I did discuss case with ENT Dr. Mendoza does recommend IV antibiotics. Patient will be admitted. I discussed case with Dr. Gonzalez who will admit, ENT has been placed on consult. (Jacob Ibanez) - Lab Data Lab Results 12/14/19 12/14/19 Range/Units 09:25 09:25 WBC 11.2 H (3.8-10.6) k/uL RBC 3.76 L (3.80-5.40) m/uL Hgb 11.1 L (11.4-16.0) gm/dL Hct 34.4 (34.0-46.0) % MCV 91.4 (80.0-100.0) fL MCH 29.5 (25.0-35.0) pg MCHC 32.3 (31.0-37.0) g/dL RDW 15.3 (11.5-15.5) % Plt Count 478 H (150-450) k/uL Neutrophils % 83 % Lymphocytes % 12 % Monocytes % 3 % Eosinophils % 1 % Basophils % 0 % Neutrophils # 9.3 H (1.3-7.7) k/uL Lymphocytes # 1.4 (1.0-4.8) k/uL Monocytes # 0.3 (0-1.0) k/uL Eosinophils # 0.1 (0-0.7) k/uL Basophils # 0.0 (0-0.2) k/uL Sodium 139 (137-145) mmol/L Potassium 4.5 (3.5-5.1) mmol/L Chloride 110 H (98-107) mmol/L Carbon Dioxide 18 L (22-30) mmol/L Anion Gap 11 mmol/L BUN 9 (7-17) mg/dL Creatinine 0.41 L (0.52-1.04) mg/dL Est GFR (CKD-EPI)AfAm >90 (>60 ml/min/1.73 sqM) Est GFR (CKD-EPI)NonAf >90 (>60 ml/min/1.73 sqM) Glucose 85 (74-99) mg/dL Calcium 9.3 (8.4-10.2) mg/dL Total Bilirubin 0.4 (0.2-1.3) mg/dL AST 18 (14-36) U/L ALT 9 (4-34) U/L Alkaline Phosphatase 62 (38-126) U/L Total Protein 7.6 (6.3-8.2) g/dL Albumin 3.9 (3.5-5.0) g/dL TSH 1.580 (0.465-4.680) mIU/L Disposition <Jacob Ibanez - Last Filed: 12/14/19 12:40> Is patient prescribed a controlled substance at d/c from ED?: No Time of Disposition: 13:34 Decision to Admit Reason: Admit from EC Decision Date: 12/14/19 Decision Time: 13:34 <Lazara Kowalski - Last Filed: 12/14/19 13:34> Clinical Impression: Neck mass Disposition: ADMITTED IP TO THIS [facility] Condition: Stable
[2019-12-14 09:41] LABS: Basophils % (A) 0 %; Eosinophils # (A) 0.1 k/uL (0-0.7); Eosinophils % (A) 1 %; HCT 34.4 % (34.0-46.0); HGB 11.1 gm/dL (11.4-16.0); Lymphocytes # (A) 1.4 k/uL (1.0-4.8); Lymphocytes % (A) 12 %; MCH 29.5 pg (25.0-35.0); MCHC 32.3 g/dL (31.0-37.0); MCV 91.4 fL (80.0-100.0); Mean Platelet Volume 7.1; Monocytes # (A) 0.3 k/uL (0-1.0); Monocytes % (A) 3 %; Neutrophils # (A) 9.3 k/uL (1.3-7.7); Neutrophils % (A) 83 %; Platelet Count 478 k/uL (150-450); RBC 3.76 m/uL (3.80-5.40); RDW 15.3 % (11.5-15.5); WBC 11.2 k/uL (3.8-10.6)
[2019-12-14 09:48] LABS: ALT 9 U/L (4-34); AST 18 U/L (14-36); African American GFR (CKD) >90 (>60 ml/min/1.73 sqM); Albumin 3.9 g/dL (3.5-5.0); Alkaline Phosphatase 62 U/L (38-126); Anion Gap 11 mmol/L; Blood Urea Nitrogen 9 mg/dL (7-17); Calcium 9.3 mg/dL (8.4-10.2); Carbon Dioxide 18 mmol/L (22-30); Chloride 110 mmol/L (98-107); Glucose 85 mg/dL (74-99); Non-African American GFR(CKD) >90 (>60 ml/min/1.73 sqM); Potassium 4.5 mmol/L (3.5-5.1); Sodium 139 mmol/L (137-145); Total Bilirubin 0.4 mg/dL (0.2-1.3); Total Protein 7.6 g/dL (6.3-8.2)
--- NOTE | 2019-12-14 10:57 | CT ---
EXAMINATION TYPE: CT soft tissue neck wo con DATE OF EXAM: 12/14/2019 HISTORY: Lump on neck COMPARISON: None. CT DLP: 261.3 mGycm. Automated Exposure Control for Dose Reduction was Utilized. TECHNIQUE: CT scan of the neck is performed without contrast, axial images are obtained, coronal and sagittal reformatted images are reviewed. FINDINGS: There are bullous changes in the upper lobes bilaterally. Vertebral body height and alignment are maintained. Atlantoaxial relationships are normal. There is n o significant degenerative change There is a 7.8 x 2.2 x 3.4 cm low attenuating soft tissue mass superimposed deep to the sternocleidom astoid muscle Parapharyngeal, oropharyngeal and laryngeal soft tissues appear unremarkable. No definite adenopathy is seen. Unfortunately the vascularity of the mass is not identified due to the lack of contrast. An internal jugular vein hemangioma is a possibility as is confluent adenopathy. There is no air within the lesio n to suggest is an abscess. IMPRESSION: LARGE LEFT NECK MASS PARALLELING THE COURSE OF THE INTERNAL JUGULAR VEIN ON THE RIGHT IS OF QUESTIONA BLE ORIGIN. A POSTCONTRAST SCAN VERSUS MRI OF THE NECK WOULD BE SUGGESTED.
[2019-12-14] MEDS ORDERED: PIPERACILLIN-TAZOBACTAM 3.375 GM in SODIUM CHLORIDE 0.9% 100 ML IVPB STA (11:27)
[2019-12-14] MEDS ORDERED: CLINDAMYCIN 600 MG in DEXTROSE 5% IN WATER 50 ML IVPB STA ×2 (11:28)
[2019-12-14] MEDS ORDERED: NALOXONE 0.4 MG/ML 1 ML VIAL IV PRN (12:00)
[2019-12-14] MEDS: SODIUM CHLORIDE 0.9% 1,000 ML IV SCH (12:42)
[2019-12-14] MEDS: ACETAMINOPHEN TAB 325 MG TAB PO PRN ×2 (15:57→21:56)
[2019-12-14] MEDS ORDERED: SODIUM CHLORIDE 0.9% IVPB ONE (16:28)
[2019-12-14] MEDS ORDERED: VANCOMYCIN IVPB ONE (16:28)
[2019-12-14] MEDS ORDERED: VANCOMYCIN IV PER PHARMACY 1 EACH MISC MISCELLANE PRN (16:28)
--- NOTE | 2019-12-14 16:36 | P.HPIM ---
History of Present Illness H&P Date: 12/14/19 Chief Complaint: Neck swelling 34-year-old female with PMH of IV drug abuse, heroin user, 15 weeks as per patient presents to the ED for swelling in her neck. Patient noticed swelling in the right side of her neck since yesterday. When the swelling doubled in size this morning this prompted the patient to come to the ED. Patient reports a vague neck pain for the past week aggravated with movement of her neck. She denies any headache, lower extremity edema, nausea or vomiting, fever or chills, cough, chest pain, shortness of breath, palpitations, changes in urination or bowel habits. Patient reports history of IV drug use, typically injects in the area of swelling but stopped on December 02. Patient states that she was on methadone for a couple of days and denies any withdrawal symptoms. She has not even following with OB regarding her . Patient states that she plans on terminating her and has been going to family planning. In ED, her vital signs are stable. CBC showed leukocytosis of 11.2. Hemoglobin is 11.1. Platelet count is 478. CMP showed chloride of 110, bicarbonate 18, creatinine 0.41. Of the neck shows large left-sided mass paralleling the course of the right internal jugular vein with questionable origin. Patient is admitted for swelling in her neck, IV antibiotics and ENT/vascular surgery evaluation. Review of Systems Pertinent positives and negatives as discussed in HPI, a complete review of systems was performed and all other systems are negative. 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 started using heroin after broken her back and couldnt get anymore vicodin History of Any Multi-Drug Resistant Organisms: MRSA Date of last positivie culture/infection: 2006 MDRO Source:: left leg Past Surgical History: No Surgical Hx Reported Additional Past Surgical History / Comment(s): chest tubes x7 for bilateral collapsed lungs 2019 Past Anesthesia/Blood Transfusion Reactions: No Reported Reaction Past Psychological History: No Psychological Hx Reported Smoking Status: Former smoker Past Alcohol Use History: Occasional Past Drug Use History: Heroin, Marijuana Additional Drug Use History / Comment(s): last used heroin morning 12/03/19. Got arrested and rec'd methadone in [facility] for detox - Past Family History family Family Medical History: No Reported History Medications and Allergies Home Medications Medication Instructions Recorded Confirmed Type Amoxicillin 500 mg PO ONCE 12/14/19 12/14/19 History Ibuprofen [Motrin Ib] 200 mg PO Q8H PRN 12/14/19 12/14/19 History Allergies Allergy/AdvReac Type Severity Reaction Status Date / Time No Known Allergies Allergy Verified 12/14/19 09:49 Physical Exam Vitals: Vital Signs Temp Pulse Pulse Resp BP BP Pulse Ox 12/14/19 14:22 98.5 F 84 16 99/59 100 12/14/19 13:00 83 18 100/59 100 12/14/19 12:00 76 18 102/59 100 12/14/19 11:30 80 18 102/58 99 12/14/19 11:17 85 18 102/58 98 12/14/19 08:33 98.4 F 87 18 110/71 100 Intake and Output 12/14/19 12/14/19 12/14/19 06:59 14:59 22:59 Intake Total 150 Balance 150 Intake: IV 150 Clindamycin 600 mg In 50 Dextrose 5% in Water 50 ml @ 50 mls/hr IVPB ONCE STA Rx#:[id number] Piperacillin-Tazobactam 3 100 .375 gm In Sodium Chloride 0.9% 100 ml @ 200 mls/hr IVPB ONCE STA Rx#:[id number] Other: Weight 61.235 kg General: [no distress], [appears at stated age] Derm: [warm], [dry] Head: [atraumatic], [normocephalic], [symmetric], swelling R side neck without erythema or discharge Eyes: [EOMI], [no lid lag], [anicteric sclera] Mouth: [no lip lesion], [mucus membranes moist] Cardiovascular: [S1S2 reg], [no murmur], [positive DP pulse bilateral], Lungs: [CTA bilateral], [no rhonchi, no rales] , [no accessory muscle use] Abdominal: [soft], [ nontender to palpation], [no guarding], [no appreciable organomegaly] Ext: [no gross muscle atrophy], [no edema], [no contractures] Neuro: [ CN II-XI grossly intact], [no focal neuro deficits] Psych: [Alert], [oriented], [appropriate affect] Results CBC & Chem 7: 12/14/19 09:25 12/14/19 09:25 Labs: Abnormal Lab Results - Last 24 Hours (Table) 12/14/19 12/14/19 Range/Units 09:25 09:25 WBC 11.2 H (3.8-10.6) k/uL RBC 3.76 L (3.80-5.40) m/uL Hgb 11.1 L (11.4-16.0) gm/dL Plt Count 478 H (150-450) k/uL Neutrophils # 9.3 H (1.3-7.7) k/uL Chloride 110 H (98-107) mmol/L Carbon Dioxide 18 L (22-30) mmol/L Creatinine 0.41 L (0.52-1.04) mg/dL Thrombosis Risk Factor Assmnt - Choose All That Apply Any of the Below Risk Factors Present?: Yes Each Factor Represents 1 point: or Thrombosis Risk Factor Assessment Total Risk Factor Score: 1 Thrombosis Risk Factor Assessment Level: Low Risk Assessment and Plan Assessment: Right-sided neck swelling Leukocytosis Anemia Thrombocytosis History of IV drug use History of heroin abuse There is questionable concern for abscess on CT neck. Given her history of endocarditis, will start vancomycin for MRSA coverage along with Zosyn. She'll be given Tylenol for fever and pain control. Blood cultures have been ordered. ENT and vascular surgery has been consulted. Her leukocytosis of 11.2 can be related to current infection versus . Her hemoglobin of 11.2 is appropriate given her . We will repeat CBC along with order iron studies tomorrow morning to evaluate her thrombocytosis (could be related to iron deficiency versus essential thrombocythemia in ). She is not displaying any signs of opiate withdrawal at this time. We will order acute hepatitis panel given her history of IV drug use. Patient reports 15 weeks but states she would like to terminate her , she is following with family planning in the outpatient setting. We will avoid toxic medications at this time. DVT prophylaxis: SCD Discussed with: [Patient] Anticipated discharge: [2 days] Anticipated discharge place: [Home] A total of [35] minutes was spent on the care of this complex patient more than 50% of the time was spent in counseling and care coordination. Patient names her mother Darian decision-maker if she can't make decisions for her salt. Patient would like to be full code.
[2019-12-14] MEDS: VANCOMYCIN 1,250 MG in SODIUM CHLORIDE 0.9% 250 ML IVPB SCH (17:14)
[2019-12-15] MEDS: PIPERACILLIN-TAZOBACTAM 3.375 GM in SODIUM CHLORIDE 0.9% 100 ML IVPB SCH ×3 (00:26→15:16)
[2019-12-15] MEDS: VANCOMYCIN 1,250 MG in SODIUM CHLORIDE 0.9% 250 ML IVPB SCH ×3 (01:16→16:49)
[2019-12-15] MEDS: ACETAMINOPHEN TAB 325 MG TAB PO PRN ×3 (05:37→21:21)
--- NOTE | 2019-12-15 09:41 | US ---
EXAMINATION TYPE: US thyroid st tissue head/neck DATE OF EXAM: 12/15/2019 COMPARISON: NONE CLINICAL HISTORY: right neck mass, s/p heroin use. Patient states neck mass x 2 days. Painful to erik ch. Multiloculated, complex mass seen in right neck between carotid artery and jugular vein. Mass has int ernal vascular flow. Jugular vein seems to be compressed by mass. Jugular blood flow seen superior an d inferior to mass with rulox type internal echos vs clot IMPRESSION: 1. Multiloculated complex mass. Differential diagnoses include neoplasm, hematoma or abscess recommen d CT scan of the neck.
[2019-12-15 10:55] LABS: Basophils # (A) 0.1 k/uL (0-0.2); Basophils % (A) 0 %; Eosinophils % (A) 0 %; HCT 31.2 % (34.0-46.0); HGB 9.8 gm/dL (11.4-16.0); Hypochromasia Slight; Lymphocytes # (A) 1.1 k/uL (1.0-4.8); Lymphocytes % (A) 9 %; MCH 29.1 pg (25.0-35.0); MCHC 31.3 g/dL (31.0-37.0); MCV 93.2 fL (80.0-100.0); Mean Platelet Volume 7.1; Monocytes # (A) 0.6 k/uL (0-1.0); Monocytes % (A) 4 %; Neutrophils # (A) 11.1 k/uL (1.3-7.7); Neutrophils % (A) 86 %; Platelet Count 428 k/uL (150-450); RBC 3.35 m/uL (3.80-5.40); RDW 15.4 % (11.5-15.5); WBC 12.9 k/uL (3.8-10.6)
[2019-12-15 11:06] LABS: African American GFR (CKD) >90 (>60 ml/min/1.73 sqM); Non-African American GFR(CKD) >90 (>60 ml/min/1.73 sqM)
[2019-12-15] MEDS ORDERED: NAPROXEN 250 MG TAB PO SCH (11:45)
[2019-12-15] MEDS: SODIUM CHLORIDE 0.9% 1,000 ML IV SCH (13:42)
[2019-12-15] MEDS: ENOXAPARIN 40 MG/0.4 ML SYRINGE SQ SCH (15:16)
--- NOTE | 2019-12-15 16:33 | P.GSCN ---
History of Present Illness Consult date: 12/15/19 Reason for Consult: right neck mass History of present illness: This is a 34-year-old female who is 12 weeks who came to the emergency department after having painful swelling in the right side of her neck for the last 2-3 days. Patient states that she is an IV drug abuser for several years, and approximately one week ago was injecting heroin into the right side of her neck. The pain had progressively gotten worse with increased swelling so the patient came to the emergency department. She denies any fevers or chills, denies any drainage or redness. The patient states right side of her neck is tenderness to palpation and has some mild discomfort with swallowing. Her past medical history includes hepatitis C and a previous MRSA infection of the left lower extremity. Patient is a nonsmoker, uses heroin and marijuana regularly. Patient had a CT of the neck without contrast that stated the impression was the re was a large left neck mass paralleling the course of the internal jugular vein on the right is of questionable origin. A postcontrast scan versus MRI of the neck would be suggested. Review of Systems 14 point review of systems was completed and all pertinent positives and negatives as stated in the HPI. 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 started using heroin after broken her back and couldnt get anymore vicodin History of Any Multi-Drug Resistant Organisms: MRSA Year Discovered:: 2006 MDRO Source:: left leg Past Surgical History: No Surgical Hx Reported Additional Past Surgical History / Comment(s): chest tubes x7 for bilateral collapsed lungs 2018 Past Anesthesia/Blood Transfusion Reactions: No Reported Reaction Past Psychological History: No Psychological Hx Reported Smoking Status: Former smoker Past Alcohol Use History: Occasional Past Drug Use History: Heroin, Marijuana Additional Drug Use History / Comment(s): last used heroin morning 12/03/19. Got arrested and rec'd methadone in nursing [facility] for detox - Past Family History family Family Medical History: No Reported History Medications and Allergies Home Medications Medication Instructions Recorded Confirmed Type Amoxicillin 500 mg PO ONCE 12/14/19 12/14/19 History Ibuprofen [Motrin Ib] 200 mg PO Q8H PRN 12/14/19 12/14/19 History Allergies Allergy/AdvReac Type Severity Reaction Status Date / Time No Known Allergies Allergy Verified 12/14/19 09:49 Surgical - Exam Vital Signs Temp Pulse Resp BP Pulse Ox 98.4 F 87 18 110/71 100 12/14/19 08:33 12/14/19 08:33 12/14/19 08:33 12/14/19 08:33 12/14/19 08:33 General appearance: The patient is alert, oriented, in no acute distress. HET: Head is normocephalic and atraumatic. Pupils are equal and reactive. Oropharynx is clear without lesions. Neck: Supple. Trachea midline. Firm, solid mass on the right side of neck with tenderness to palpation. No redness or drainage noted. Heart: S1 S2. Regular rate and rhythm. Lungs: No crackles or wheezes are heard. Abdomen: Soft, nontender, nondistended with bowel sounds. No peritoneal signs. No palpable organomegaly or masses. Extremities: Normal skin color and turgor. No cyanosis, rash, ulceration, clubbing, or edema. Radial and pedal pulses are 2/4 bilaterally. Neurological: No focal deficits. Strength and sensation are grossly intact. Results - Labs 12/15/19 09:57 12/15/19 09:57 Abnormal Lab Results - Last 24 Hours (Table) 12/14/19 12/14/19 Range/Units 09:25 09:25 WBC 11.2 H (3.8-10.6) k/uL RBC 3.76 L (3.80-5.40) m/uL Hgb 11.1 L (11.4-16.0) gm/dL Plt Count 478 H (150-450) k/uL Neutrophils # 9.3 H (1.3-7.7) k/uL Chloride 110 H (98-107) mmol/L Carbon Dioxide 18 L (22-30) mmol/L Creatinine 0.41 L (0.52-1.04) mg/dL Diabetes panel 12/14/19 Range/Units 09:25 Sodium 139 (137-145) mmol/L Potassium 4.5 (3.5-5.1) mmol/L Chloride 110 H (98-107) mmol/L Carbon Dioxide 18 L (22-30) mmol/L BUN 9 (7-17) mg/dL Creatinine 0.41 L (0.52-1.04) mg/dL Glucose 85 (74-99) mg/dL Calcium 9.3 (8.4-10.2) mg/dL AST 18 (14-36) U/L ALT 9 (4-34) U/L Alkaline Phosphatase 62 (38-126) U/L Total Protein 7.6 (6.3-8.2) g/dL Albumin 3.9 (3.5-5.0) g/dL Thyroid panel 12/14/19 Range/Units 09:25 TSH 1.580 (0.465-4.680) mIU/L Calcium panel 12/14/19 Range/Units 09:25 Calcium 9.3 (8.4-10.2) mg/dL Albumin 3.9 (3.5-5.0) g/dL Pituitary panel 12/14/19 Range/Units 09:25 Sodium 139 (137-145) mmol/L Potassium 4.5 (3.5-5.1) mmol/L Chloride 110 H (98-107) mmol/L Carbon Dioxide 18 L (22-30) mmol/L BUN 9 (7-17) mg/dL Creatinine 0.41 L (0.52-1.04) mg/dL Glucose 85 (74-99) mg/dL Calcium 9.3 (8.4-10.2) mg/dL TSH 1.580 (0.465-4.680) mIU/L Adrenal panel 12/14/19 Range/Units 09:25 Sodium 139 (137-145) mmol/L Potassium 4.5 (3.5-5.1) mmol/L Chloride 110 H (98-107) mmol/L Carbon Dioxide 18 L (22-30) mmol/L BUN 9 (7-17) mg/dL Creatinine 0.41 L (0.52-1.04) mg/dL Glucose 85 (74-99) mg/dL Calcium 9.3 (8.4-10.2) mg/dL Total Bilirubin 0.4 (0.2-1.3) mg/dL AST 18 (14-36) U/L ALT 9 (4-34) U/L Alkaline Phosphatase 62 (38-126) U/L Total Protein 7.6 (6.3-8.2) g/dL Albumin 3.9 (3.5-5.0) g/dL Assessment and Plan Assessment: 1. Right sided Neck mass 2. IV Drug use 3. Leukocytosis 4. Intrauterine , approximately 12 weeks Plan: Carotid ultrasound of the neck ordered, however radiology change to soft tissue ultrasound of the neck which showed a multi-loculated complex mass. Differential diagnosis includes neoplasm, hematoma or abscess, recommend CT of the neck. MRI of the neck without contrast ordered, however radiology states able to complete until patient has been seen and cleared for further imaging by [facility]. Consult has been placed. Patient is scheduled tentatively for tomorrow with Dr. Youssef for incision and debridement of the right side of the neck based on MRI results. Continue with IV antibiotics. Appreciate recommendations per ENT. Further recommendations to follow. Q for this consultation allowing us to take part in the plan of care of the patient during her hospital stay. The above dictated assessment and findings were discussed with Dr. Youssef. The impression and plan of care have been directed as dictated.
--- NOTE | 2019-12-15 20:23 | P.PN ---
Progress Note - Text Progress Note Date: 12/15/19 Presenting complaint: Painful mass in the right neck Interval history: From the records: 34-year-old female with PMH of IV drug abuse, heroin user, 15 weeks as per patient presents to the ED for swelling in right neck. Patient noticed swelling in the right side of her neck since yesterday. When the swelling doubled in size this morning this prompted the patient to come to the ED. Patient reports a vague neck pain for the past week aggravated with movement of her neck. She denies any headache, lower extremity edema, nausea or vomiting, fever or chills, cough, chest pain, shortness of breath, palpitations, changes in urination or bowel habits. Patient reports history of IV drug use, typically injects in the area of swelling but stopped on December 02. Patient states that she was on methadone for a couple of days and denies any withdrawal symptoms. She has not even following with OB regarding her . Patient states that she plans on terminating her and has been going to family planning. In the ED, her vital signs are stable. CBC showed leukocytosis of 11.2. Hemoglobin is 11.1. Platelet count is 478. CMP showed chloride of 110, bicarbonate 18, creatinine 0.41. Of the neck shows large left-sided mass paralleling the course of the right internal jugular vein with questionable origin. Patient is admitted for swelling in her neck, IV antibiotics and ENT/vascular surgery evaluation. Today-sitting up in bed. Some pain in the right neck lump. No trouble swallowing. No fever no chills. Review of systems: Was done for constitutional, cardiovascular, GI, pulmonary. relevant finding as above Active Medications Acetaminophen (Tylenol Tab) 650 mg PO Q6HR PRN PRN Reason: Mild Pain or Fever > 100.5 Last Admin: 12/15/19 15:15 Dose: 650 mg Documented by: Enoxaparin Sodium (Lovenox) 40 mg SQ DAILY [facility] Last Admin: 12/15/19 15:16 Dose: 40 mg Documented by: Sodium Chloride (Saline 0.9%) 1,000 mls @ 20 mls/hr IV .Q24H [facility] Last Admin: 12/15/19 13:42 Dose: Not Given Documented by: Piperacillin Sod/Tazobactam (Sod 3.375 gm/ Sodium Chloride) 100 mls @ 25 mls/hr IVPB Q8HR [facility] Last Admin: 12/15/19 15:16 Dose: 25 mls/hr Documented by: Vancomycin HCl 1,250 mg/ (Sodium Chloride) 250 mls @ 125 mls/hr IVPB Q8H [facility] Last Admin: 12/15/19 16:49 Dose: 125 mls/hr Documented by: Miscellaneous Information (Vancomycin Trough Due) 0 each MISCELLANE DIRECTED ONE Stop: 12/16/19 08:01 Naloxone HCl (Narcan) 0.2 mg IV Q2M PRN PRN Reason: Opioid Reversal On examination: VITAL SIGNS: 99.2, 70, 18, 91/59, 97% on room air GENERAL APPEARANCE: Propped up in bed, not in distress. HEENT: Normal external appearance of nose and ear. Oral cavity normal EYES: Pupils equal. Conjunctiva normal. NECK: Mass in the right part of the lower neck, tender. RESPIRATORY: Respiratory effort normal. Lungs clear to auscultation. CARDIOVASCULAR: First and second sounds normal. No edema. ABDOMEN: Soft. Liver and spleen not palpable. No tenderness. No mass palpable. PSYCHIATRY: Alert and oriented x3. Mood and affect normal. Investigations: White count 12.9 hemoglobin 9.8 COVID 19 PCR-not detected Computed tomography scan soft tissue neck-large right-sided neck mass battling the course of internal jugular vein. Ultrasound thyroid soft tissue head and neck-multiloculated complex mass seen in the right neck between the carotid artery and vein. Mass has internal vascular flow. Assessment: -Right-sided neck mass and IV drug abuser, suspect abscess. -11 week intrauterine , the patient has expressed it to be terminated -IV heroin drug abuser Plan: MRI was ordered by Dr. Youssef from vascular. OB was also consulted. Given was discussed with the patient. Had Lovenox due to prophylaxis. Continue his IV vancomycin and Zosyn.
[2019-12-15 21:44] LABS: Ferritin 163.6 ng/mL (10.0-291.0)
[2019-12-15 21:49] LABS: % Iron Saturation 7.37 (12.00-45.00); Iron 21 ug/dL (50-170); Total Iron Binding Capacity 285 ug/dL (228-460)
[2019-12-15] MEDS: CALCIUM CARBONATE LIQUID 500 MG/5 ML CUP PO SCH (22:39)
[2019-12-16] MEDS: PIPERACILLIN-TAZOBACTAM 3.375 GM in SODIUM CHLORIDE 0.9% 100 ML IVPB SCH ×4 (00:46→23:57)
[2019-12-16] MEDS: VANCOMYCIN 1,250 MG in SODIUM CHLORIDE 0.9% 250 ML IVPB SCH ×3 (00:46→20:19)
[2019-12-16] MEDS: CALCIUM CARBONATE LIQUID 500 MG/5 ML CUP PO SCH ×4 (07:41→20:18)
[2019-12-16] MEDS: ENOXAPARIN 40 MG/0.4 ML SYRINGE SQ SCH (07:46)
[2019-12-16] MEDS: ACETAMINOPHEN TAB 325 MG TAB PO PRN ×3 (07:48→20:18)
[2019-12-16] MEDS ORDERED: VANCOMYCIN TROUGH DUE 1 EACH MISC MISCELLANE ONE (08:00)
[2019-12-16 09:06] LABS: HGB 9.9 gm/dL (11.4-16.0); Hypochromasia Slight; MCH 29.7 pg (25.0-35.0); MCV 93.1 fL (80.0-100.0); Mean Platelet Volume 7.5; Platelet Count 397 k/uL (150-450); RBC 3.33 m/uL (3.80-5.40); RDW 15.4 % (11.5-15.5)
[2019-12-16 09:25] LABS: African American GFR (CKD) >90 (>60 ml/min/1.73 sqM); C Reactive Protein 33.9 mg/L (<10.0); Non-African American GFR(CKD) >90 (>60 ml/min/1.73 sqM)
--- NOTE | 2019-12-16 11:08 | P.OBCN ---
History of Present Illness Consult date: 12/16/19 Requesting physician: Dequan Hearn Reason for consult: early problem Chief complaint: Neck mass History of present illness: This is a 34-year-old 2 para 1001 woman with an estimated due date of 06/22/2020 based on six-week ultrasound who presents to the emergency room with several day history of increasing mass in her neck. She was injecting heroin into her neck and noticed pain and swelling subsequent to this. She is known to be approximately 12 weeks based on early ultrasound at 6 weeks. I&D of neck mass is planned pending results of the neck MRI. She has undergone neck CT as well as ultrasound. She denies vaginal bleeding, foul vaginal discharge, abdominal or pelvic pain, dysuria. 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 started using heroin after broken her back and couldnt get anymore vicodin History of Any Multi-Drug Resistant Organisms: MRSA Year Discovered:: 2006 MDRO Source:: left leg Past Surgical History: No Surgical Hx Reported Additional Past Surgical History / Comment(s): chest tubes x7 for bilateral collapsed lungs 2019 Past Anesthesia/Blood Transfusion Reactions: No Reported Reaction Past Psychological History: No Psychological Hx Reported Smoking Status: Former smoker Past Alcohol Use History: Occasional Past Drug Use History: Heroin, Marijuana Additional Drug Use History / Comment(s): last used heroin morning 12/03/19. Got arrested and rec'd methadone in intermediate for detox - Past Family History family Family Medical History: No Reported History Medications and Allergies Home Medications Medication Instructions Recorded Confirmed Type Amoxicillin 500 mg PO ONCE 12/14/19 12/14/19 History Ibuprofen [Motrin Ib] 200 mg PO Q8H PRN 12/14/19 12/14/19 History Allergies Allergy/AdvReac Type Severity Reaction Status Date / Time No Known Allergies Allergy Verified 12/14/19 09:49 Exam Vital Signs Temp Pulse Resp BP Pulse Ox 12/16/19 07:00 99.2 F 73 17 91/57 97 12/16/19 01:30 99.1 F 80 18 94/54 98 12/15/19 19:12 98.6 F 85 18 84/48 99 12/15/19 15:00 99.2 F 70 18 91/59 97 Intake and Output 12/15/19 12/16/19 12/16/19 22:59 06:59 14:59 Intake Total 60 Balance 60 Intake: Intake, IV Titration 60 Amount Sodium Chloride 0.9% 1, 60 000 ml @ 20 mls/hr IV . Q24H REPLACED BY [facility] Rx#:[id number] Other: Voiding Method Toilet Toilet This is a pleasant, pale female in no obvious distress. Entire time was spent in consultation. No RECRUITING ADMINISTRATOR exam was performed at this time. Results Result Diagrams: 12/16/19 08:07 12/16/19 08:07 Abnormal Lab Results - Last 24 Hours (Table) 12/15/19 12/16/19 12/16/19 Range/Units 09:57 08:07 08:07 WBC 12.0 H (3.8-10.6) k/uL RBC 3.33 L (3.80-5.40) m/uL Hgb 9.9 L (11.4-16.0) gm/dL Hct 31.0 L (34.0-46.0) % Creatinine 0.41 L 0.45 L (0.52-1.04) mg/dL Iron 21 L (50-170) ug/dL % Saturation 7.37 L (12.00-45.00) C-Reactive Protein 33.9 H (<10.0) mg/L Microbiology - Last 24 Hours (Table) 12/14/19 12:11 Blood Culture - Preliminary Blood No Growth after [address] Scan - head: report reviewed Assessment and Plan (1) Anemia affecting in first trimester Current Visit: Yes Status: Acute Code(s): O99.011 - ANEMIA COMPLICATING , FIRST TRIMESTER SNOMED Code(s): 10975383 (2) Neck mass Current Visit: Yes Status: Acute Code(s): R22.1 - LOCALIZED SWELLING, MASS AND LUMP, NECK SNOMED Code(s): 018729935 (3) First trimester Current Visit: No Status: Acute Code(s): Z34.91 - ENCNTR FOR SUPRVSN OF NORMAL PREG, UNSP, FIRST TRIMESTER SNOMED Code(s): 34088457 (4) Polysubstance abuse Current Visit: No Status: Acute Code(s): F19.10 - OTHER PSYCHOACTIVE SUBSTANCE ABUSE, UNCOMPLICATED SNOMED Code(s): 106349662 Plan: This is a 34-year-old 2 para 1 woman who is approximately 12 weeks who presents with neck mass, possible abscess secondary to IV drug use at the site. Necessary imaging of the head and neck including MRI are appropriate at this time. Any radiation producing imaging should involve routine shielding of the abdomen and pelvis per protocol. Medication choices should a category C or better. At this time the patient confides that she is planning voluntary termination of and has made arrangements for this. Should she choose to continue the she certainly would be considered a high-risk and will need care through a maternal medicine specialist. She is given contact information for my office if she should choose to continue the we can refer her to high risk clinic. She was counseled on recommendations regarding imaging and medications and all questions are answered. Don't hesitate to contact me should you have any further questions or concerns thank you for the consultation. Time with Patient: Less than 30
--- NOTE | 2019-12-16 13:13 | MR ---
MR neck without contrast HISTORY: Right neck mass Multiplanar multisequence imaging through the neck and correlated to CT neck 12/14/2019 Intravenous contrast could compromise sensitivity. There is a marker overlying the site of patient's clinical abnormality in the right neck. T1 intermediate, T2 bright signal is noted the site of patient's palpable abnormality within the ante rior margin of the sternocleidomastoid muscle and just deep to the skin by approximately 4 to 5 mm. I ncreased signal on T2-weighted sequences within the subcutaneous fat is consistent with induration. T he area of abnormal signal measures approximately 1.3 x 0.8 x 2.5 cm in cephalad to caudal dimension. Some local mass effect is suspected on the internal jugular vein on the right. Some mild asymmetry i n the signal within the internal jugular vein may be due to differences of flow dynamics, exam is basilio ited to exclude deep venous thrombosis. Indeterminate focus of increased signal seen in the right upper lobe medially on axial image #2. Depression: Findings may represent an abscess within the sternocleidomastoid muscle on the right ante riorly. There is mass effect on the internal jugular vein suspected, no definite deep venous thrombos is identified however, the exam is limited by lack of contrast. Indeterminate signal in the right upp er lobe.
[2019-12-16 15:28] LABS: Hepatitis A Antibody IgM Non-Reactive (Non-Reactive); Hepatitis B Core IgM Non-Reactive (Non-Reactive); Hepatitis B Surface Antigen Non-Reactive (Non-Reactive); Hepatitis C IgG Antibody Reactive (Non-Reactive)
--- NOTE | 2019-12-16 16:33 | P.PN ---
Subjective Progress Note Date: 12/16/19 Patient was seen and examined at the bedside. Patient is sitting up in the recliner. She states that pain has improved some on the right side of her neck as well as his swelling. She had a low-grade fever through the night. Denies any fevers or chills currently. Denies any shortness of breath or difficulty breathing. Denies any difficulty with swallowing. She is currently on IV antibiotics. Objective - Vital Signs Vital signs: Vital Signs Temp 99.2 F 12/16/19 07:00 Pulse 73 12/16/19 07:00 Resp 17 12/16/19 07:00 BP 91/57 12/16/19 07:00 Pulse Ox 97 12/16/19 07:00 Intake & Output 12/15/19 12/16/19 12/16/19 18:59 06:59 18:59 Intake Total 590 60 350 Balance 590 60 350 Intake: Intake, IV Titration 590 60 350 Amount Piperacillin-Tazobactam 3 200 100 .375 gm In Sodium Chloride 0.9% 100 ml @ 25 mls/hr IVPB Q8HR [facility] Rx# :[id number] Sodium Chloride 0.9% 1, 140 60 000 ml @ 20 mls/hr IV . Q24H [facility] Rx#:[id number] Vancomycin 1,250 mg In 250 Sodium Chloride 0.9% 250 ml @ 125 mls/hr IVPB Q8H [facility] Rx#:[id number] Vancomycin 1,250 mg In 250 Sodium Chloride 0.9% 250 ml @ 125 mls/hr IVPB Q8H [facility] Rx#:[id number] Other: Voiding Method Toilet Toilet # Voids 2 - Exam General appearance: The patient is alert, oriented, in no acute distress. HET: Head is normocephalic and atraumatic. Neck: Supple without lymphadenopathy. Trachea midline. Swelling/mass on right side of neck has decreased in size significantly. No erythema or drainage. Still has tenderness to palpation. Heart: S1 S2. Regular rate and rhythm. Lungs: No crackles or wheezes are heard. Extremities: Normal skin color and turgor. No cyanosis, rash, ulceration, clubbing, or edema. Radial and pedal pulses are 2/4 bilaterally. Neurological: No focal deficits. Strength and sensation are grossly intact. - Labs CBC & Chem 7: 12/16/19 08:07 12/16/19 08:07 Labs: Abnormal Lab Results - Last 24 Hours (Table) 12/15/19 12/15/19 12/16/19 Range/Units 09:57 09:57 08:07 WBC (3.8-10.6) k/uL RBC (3.80-5.40) m/uL Hgb (11.4-16.0) gm/dL Hct (34.0-46.0) % Creatinine 0.45 L (0.52-1.04) mg/dL Iron 21 L (50-170) ug/dL % Saturation 7.37 L (12.00-45.00) C-Reactive Protein 33.9 H (<10.0) mg/L Hep C IgG Ab Reactive H (Non-Reactive) 12/16/19 Range/Units 08:07 WBC 12.0 H (3.8-10.6) k/uL RBC 3.33 L (3.80-5.40) m/uL Hgb 9.9 L (11.4-16.0) gm/dL Hct 31.0 L (34.0-46.0) % Creatinine (0.52-1.04) mg/dL Iron (50-170) ug/dL % Saturation (12.00-45.00) C-Reactive Protein (<10.0) mg/L Hep C IgG Ab (Non-Reactive) Microbiology - Last 24 Hours (Table) 12/14/19 12:11 Blood Culture - Preliminary Blood No Growth after 48 hours Assessment and Plan Assessment: 1. Right sided Neck mass 2. IV Drug use 3. Leukocytosis 4. Intrauterine , approximately 12 weeks Plan: Patient scheduled to undergo MRI, patient was cleared by [facility].. Incision and drainage of the right side of the neck has been postponed at this time as swelling has decreased in size.. Will await MRI results. Continue IV antibiotics as ordered. Further recommendations to follow. The above dictated assessment and findings were discussed with Dr. Youssef. The impression and plan of care have been directed as dictated.
[2019-12-16] MEDS: SODIUM CHLORIDE 0.9% 1,000 ML IV SCH (20:18)
--- NOTE | 2019-12-16 23:06 | P.PN ---
Progress Note - Text Progress Note Date: 12/16/19 Presenting complaint: Painful mass in the right neck Interval history: From the records: 34-year-old female with PMH of IV drug abuse, heroin user, 15 weeks as per patient presents to the ED for swelling in right neck. Patient noticed swelling in the right side of her neck since yesterday. When the swelling doubled in size this morning this prompted the patient to come to the ED. Patient reports a vague neck pain for the past week aggravated with movement of her neck. She denies any headache, lower extremity edema, nausea or vomiting, fever or chills, cough, chest pain, shortness of breath, palpitations, changes in urination or bowel habits. Patient reports history of IV drug use, typically injects in the area of swelling but stopped on December 02. Patient states that she was on methadone for a couple of days and denies any withdrawal symptoms. She has not even following with OB regarding her . Patient states that she plans on terminating her and has been going to family planning. In the ED, her vital signs are stable. CBC showed leukocytosis of 11.2. Hemoglobin is 11.1. Platelet count is 478. CMP showed chloride of 110, bicarbonate 18, creatinine 0.41. Of the neck shows large left-sided mass paralleling the course of the right internal jugular vein with questionable origin. Patient is admitted for swelling in her neck, IV antibiotics and ENT/vascular surgery evaluation. Today-swelling pain in the right neck mass has gone down. No fever no chills. Surgery was canceled. Review of systems: Was done for constitutional, cardiovascular, GI, pulmonary. relevant finding as above Active Medications Acetaminophen (Tylenol Tab) 650 mg PO Q6HR PRN PRN Reason: Mild Pain or Fever > 100.5 Last Admin: 12/16/19 20:18 Dose: 650 mg Documented by: Calcium Carbonate/Glycine (Tums Liquid) 500 mg PO ACHS [facility] Last Admin: 12/16/19 20:18 Dose: 500 mg Documented by: Enoxaparin Sodium (Lovenox) 40 mg SQ DAILY [facility] Last Admin: 12/16/19 07:46 Dose: Not Given Documented by: Sodium Chloride (Saline 0.9%) 1,000 mls @ 20 mls/hr IV .Q24H [facility] Last Admin: 12/16/19 20:18 Dose: 20 mls/hr Documented by: Piperacillin Sod/Tazobactam (Sod 3.375 gm/ Sodium Chloride) 100 mls @ 25 mls/hr IVPB Q8HR [facility] Last Admin: 12/16/19 17:08 Dose: 25 mls/hr Documented by: Vancomycin HCl 1,250 mg/ (Sodium Chloride) 250 mls @ 125 mls/hr IVPB Q8H [facility] Last Admin: 12/16/19 20:19 Dose: 125 mls/hr Documented by: Naloxone HCl (Narcan) 0.2 mg IV Q2M PRN PRN Reason: Opioid Reversal On examination: VITAL SIGNS:99, 86, 18, 105/69, 99% room air GENERAL APPEARANCE:name, comfortable HEENT: Normal external appearance of nose and ear. Oral cavity normal EYES: Pupils equal. Conjunctiva normal. NECK: decreasedMass in the right part of the lower neck,less tender. RESPIRATORY: Respiratory effort normal. Lungs clear to auscultation. CARDIOVASCULAR: First and second sounds normal. No edema. ABDOMEN: Soft. Liver and spleen not palpable. No tenderness. No mass palpable. PSYCHIATRY: Alert and oriented x3. Mood and affect normal. Investigations: White count 12 hemoglobin 9.9 creatinine 0.45 CRP 33.9 hepatitis E IgG antibody reactive MRI of the neck-suspect abscess blood culture negative, Previous testing White count 12.9 hemoglobin 9.8 COVID 19 PCR-not detected Computed tomography scan soft tissue neck-large right-sided neck mass battling the course of internal jugular vein. Ultrasound thyroid soft tissue head and neck-multiloculated complex mass seen in the right neck between the carotid artery and vein. Mass has internal vascular flow. Assessment: -Right-sided neck mass and IV drug abuser, suspect abscess.-clinical improvement -11 week intrauterine , the patient has expressed it to be terminated voluntarily -IV heroin drug abuser Plan: Continue his IV vancomycin and Zosyn.repeat CRP in the morning. culture remains negative.check pro calcitonin in the morning
[2019-12-17] MEDS: ACETAMINOPHEN TAB 325 MG TAB PO PRN ×4 (01:20→20:45)
[2019-12-17] MEDS: VANCOMYCIN 1,250 MG in SODIUM CHLORIDE 0.9% 250 ML IVPB SCH ×3 (04:18→22:12)
[2019-12-17] MEDS: CALCIUM CARBONATE LIQUID 500 MG/5 ML CUP PO SCH ×4 (06:57→20:45)
[2019-12-17 08:29] LABS: HCT 28.8 % (34.0-46.0); HGB 9.1 gm/dL (11.4-16.0); MCH 29.4 pg (25.0-35.0); MCHC 31.6 g/dL (31.0-37.0); MCV 92.8 fL (80.0-100.0); Mean Platelet Volume 7.4; Platelet Count 351 k/uL (150-450); RDW 15.7 % (11.5-15.5); WBC 11.6 k/uL (3.8-10.6)
[2019-12-17 08:35] LABS: African American GFR (CKD) >90 (>60 ml/min/1.73 sqM); Non-African American GFR(CKD) >90 (>60 ml/min/1.73 sqM)
[2019-12-17] MEDS: ENOXAPARIN 40 MG/0.4 ML SYRINGE SQ SCH (08:58)
[2019-12-17] MEDS: PIPERACILLIN-TAZOBACTAM 3.375 GM in SODIUM CHLORIDE 0.9% 100 ML IVPB SCH ×2 (09:22→17:46)
[2019-12-17] MEDS ORDERED: IV FLUID CONTINUATION 1,000 ML IV ONE (12:19)
[2019-12-17] MEDS ORDERED: SUCCINYLCHOLINE CHLORIDE 100 MG/5 ML SYR IV ONE (12:35)
[2019-12-17] MEDS ORDERED: GLYCOPYRROLATE 0.2 MG/ML 2 ML VIAL ONE (12:35)
[2019-12-17] MEDS ORDERED: PROPOFOL 10 MG/ML 20 ML VIAL IV ONE (12:35)
[2019-12-17] MEDS ORDERED: ROCURONIUM BROMIDE 10 MG/ML 5 ML VIAL IV ONE (12:35)
[2019-12-17] MEDS ORDERED: NEOSTIGMINE 1 MG/ML 10 ML VIAL ONE (12:35)
[2019-12-17] MEDS ORDERED: LIDOCAINE 1% INJ 10MG/ML (20 ML MDV) SQ ONE ×2 (12:40)
[2019-12-17] MEDS ORDERED: LACTATED RINGERS 1,000 ML IV ONE (13:17)
--- NOTE | 2019-12-17 14:02 | P.OP ---
Date of Procedure: 12/17/19 Description of Procedure: Preoperative diagnosis: Right neck abscess, IV drug abuse Postoperative diagnosis: Same, multiple areas of abscess, submuscular Procedure: [Exploration of right neck Incision and drainage of submuscular abscesses] Surgeon: Morena Colmenares D.O. Anesthesia: Gen. endotracheal EBL: [Less than 10 mL] IV fluids: [See anesthesia] Urine output: [None measured] Drains: [Quarter inch Glenna] Complications: [None] Condition: [Stable to recovery] Operative indication and findings: [The patient is a 34-year-old female with a IV drug use history who has been injecting into her internal jugular vein. She had significant swelling and was found to have a complex area. It was thought more likely to be a hematoma versus an abscess. After multiple imagings were obtained, did look more like an abscess versus a mass. She is also 12 weeks but does plan to terminate the . ] HIGH LIFT DRIVER saw and evaluated the patient and give recommendations. At this point the patient was brought to the operating room for surgical expiration and drainage of the area. Procedure in detail: [ the patient was taken to the operative suite and placed in supine position. The right neck was prepped and draped in usual sterile fashion. Preprocedure timeout performed, all parties are in agreement. Along the border of the sternal cleidomastoid, the skin was anesthetized. An incision was made and carried down through the platysma. There was no evidence of purulent drainage at this point. Ultrasound was used which did reveal a deepened area of multiple abscesses. The sternocleidomastoid was retracted laterally and upon doing so there was significantly tough and scarred tissue in this area. There was an area of purulence that was evacuated. It was cultured. There was multiple small loculated portions of chronic phlegmon changes. That point the area was copiously irrigated with antibiotic saline. A quarter-inch Glenna was placed and the skin was reapproximated loosely over the top with a 3-0 nylon. Dressings were placed. The patient was allowed awaken from anesthesia and transferred to recovery in stable condition having tolerated the procedure well. ]
[2019-12-17] MEDS ORDERED: ACETAMINOPHEN IV (For NPO) 1,000 MG/100 ML VIAL IVPB ONE (14:18)
[2019-12-17] MEDS: SODIUM CHLORIDE 0.9% 1,000 ML IV SCH (20:45)
--- NOTE | 2019-12-17 22:18 | P.PN ---
Progress Note - Text Progress Note Date: 12/17/19 Presenting complaint: Painful mass in the right neck Interval history: From the records: 34-year-old female with PMH of IV drug abuse, heroin user, 15 weeks as per patient presents to the ED for swelling in right neck. Patient noticed swelling in the right side of her neck since yesterday. When the swelling doubled in size this morning this prompted the patient to come to the ED. Patient reports a vague neck pain for the past week aggravated with movement of her neck. She denies any headache, lower extremity edema, nausea or vomiting, fever or chills, cough, chest pain, shortness of breath, palpitations, changes in urination or bowel habits. Patient reports history of IV drug use, typically injects in the area of swelling but stopped on December 02. Patient states that she was on methadone for a couple of days and denies any withdrawal symptoms. She has not even following with OB regarding her . Patient states that she plans on terminating her and has been going to family planning. In the ED, her vital signs are stable. CBC showed leukocytosis of 11.2. Hemoglobin is 11.1. Platelet count is 478. CMP showed chloride of 110, bicarbonate 18, creatinine 0.41. Of the neck shows large left-sided mass paralleling the course of the right internal jugular vein with questionable origin. Patient is admitted for swelling in her neck, IV antibiotics and ENT/vascular surgery evaluation. Today-patient was taken down to the operating room today. Deep-seated multiple loci off abscesses were evacuated. Glenna drains was placed. Review of systems: Was done for constitutional, cardiovascular, GI, pulmonary. relevant finding as above Active Medications Acetaminophen (Tylenol Tab) 650 mg PO Q6HR PRN PRN Reason: Mild Pain or Fever > 100.5 Last Admin: 12/17/19 20:45 Dose: 650 mg Documented by: Calcium Carbonate/Glycine (Tums Liquid) 500 mg PO ACHS COUNT INCLUDES THE [facility] Last Admin: 12/17/19 20:45 Dose: 500 mg Documented by: Enoxaparin Sodium (Lovenox) 40 mg SQ DAILY COUNT INCLUDES THE [facility] Last Admin: 12/17/19 08:58 Dose: Not Given Documented by: Sodium Chloride (Saline 0.9%) 1,000 mls @ 20 mls/hr IV .Q24H COUNT INCLUDES THE [facility] Last Admin: 12/17/19 20:45 Dose: 20 mls/hr Documented by: Piperacillin Sod/Tazobactam (Sod 3.375 gm/ Sodium Chloride) 100 mls @ 25 mls/hr IVPB Q8HR COUNT INCLUDES THE [facility] Last Admin: 12/17/19 17:46 Dose: 25 mls/hr Documented by: Vancomycin HCl 1,250 mg/ (Sodium Chloride) 250 mls @ 125 mls/hr IVPB Q8H COUNT INCLUDES THE [facility] Last Admin: 12/17/19 22:12 Dose: 125 mls/hr Documented by: Naloxone HCl (Narcan) 0.2 mg IV Q2M PRN PRN Reason: Opioid Reversal On examination: VITAL SIGNS: 97.8, 71, 20, 103/66, 100% room air GENERAL APPEARANCE: Laying in bed, awake HEENT: Normal external appearance of nose and ear. Oral cavity normal EYES: Pupils equal. Conjunctiva normal. NECK: Dressing over the right neck with a Glenna drain RESPIRATORY: Respiratory effort normal. Lungs clear to auscultation. CARDIOVASCULAR: First and second sounds normal. No edema. ABDOMEN: Soft. Liver and spleen not palpable. No tenderness. No mass palpable. PSYCHIATRY: Alert and oriented x3. Mood and affect normal. Investigations: White count 11.6 hemoglobin 9.1 pro calcitonin 0.06 Previous testing White count 12.9 hemoglobin 9.8 COVID 19 PCR-not detected Computed tomography scan soft tissue neck-large right-sided neck mass battling the course of internal jugular vein. Ultrasound thyroid soft tissue head and neck-multiloculated complex mass seen in the right neck between the carotid artery and vein. Mass has internal vascular flow. hepatitis C IgG antibody reactive MRI of the neck-suspect abscess blood culture negative, Assessment: -Right-sided deep neck abscess from IV drug abuser, status open post I&D-[place] drain in place -11 week intrauterine , the patient has expressed it to be terminated voluntarily -IV heroin drug abuser -Normocytic anemia from above chronic inflammation Plan: Continue his IV vancomycin and Zosyn.await culture results. Discussed with the patient.
--- NOTE | 2019-12-17 23:23 | P.CONS ---
History of Present Illness - Reason for Consult Consult date: 12/17/19 Neck abscess Requesting physician: Dequan Hearn - Chief Complaint Right-sided neck pain swelling and redness x few days - History of Present Illness Patient is a 34-year-old female with a past medical history significant for IV to use off and on since she was 21-year-old, patient recently injected into the right side of the neck and the patient mentioned she has no IVs left in both upper arm, for the last few days the patient started noticing pain swelling in the right side of the neck patient describing the pain to be sharp and throbbing almost 78 out of 10 and no radiation with associated swelling and tenderness and redness no point wound or any drainage with the symptoms the patient presented to the hospital on 12/14/2019 with concern for possible forming an abscess patient had did have a low-grade fever of 99.7 and did have mildly elevated white count of 12,000 patient did have a CT that was suspicious for a fluid collection subsequently did have an MRI that did confirm possible abscess patient was taken to the OR this afternoon and is status post drainage of this abscess patient has been treated with vancomycin and Zosyn and infectious disease was consulted last night for further management of antibiotic therapy Review of Systems Positive point has been mentioned in the HPI rest of the systems are negative Past Medical History Past Medical History: No Reported History Additional Past Medical History / Comment(s): Hep C, 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 started using heroin after broken her back and couldnt get anymore vicodin History of Any Multi-Drug Resistant Organisms: MRSA Year Discovered:: 2006 MDRO Source:: left leg Past Surgical History: No Surgical Hx Reported Additional Past Surgical History / Comment(s): chest tubes x7 for bilateral collapsed lungs 2018 Past Anesthesia/Blood Transfusion Reactions: No Reported Reaction Past Psychological History: No Psychological Hx Reported Smoking Status: Former smoker Past Alcohol Use History: Occasional Past Drug Use History: Heroin, Marijuana Additional Drug Use History / Comment(s): last used heroin morning 12/03/19. Got arrested and rec'd methadone in [place] for detox - Past Family History family Family Medical History: No Reported History Medications and Allergies Home Medications Medication Instructions Recorded Confirmed Type Amoxicillin 500 mg PO ONCE 12/14/19 12/14/19 History Ibuprofen [Motrin Ib] 200 mg PO Q8H PRN 12/14/19 12/14/19 History Allergies Allergy/AdvReac Type Severity Reaction Status Date / Time No Known Allergies Allergy Verified 12/17/19 12:27 Physical Exam Vitals: Vital Signs Temp Pulse Pulse Resp BP Pulse Ox 12/17/19 12:20 85 17 100/56 99 12/17/19 11:42 98.3 F 85 20 84/51 100 12/17/19 09:20 78 20 12/17/19 08:00 78 20 12/17/19 07:00 98.6 F 78 20 88/53 98 12/17/19 01:00 99.0 F 79 18 91/58 97 12/16/19 19:00 99.0 F 86 18 105/69 99 12/16/19 15:00 99.0 F 84 18 99/59 99 Intake and Output 12/16/19 12/17/19 12/17/19 22:59 06:59 14:59 Intake Total 740 660 Balance 740 660 Intake: IV 400 Intake, IV Titration 260 260 Amount Piperacillin-Tazobactam 3 100 100 .375 gm In Sodium Chloride 0.9% 100 ml @ 25 mls/hr IVPB Q8HR [facility] Rx# :[id number] Sodium Chloride 0.9% 1, 160 160 000 ml @ 20 mls/hr IV . Q24H [facility] Rx#:[id number] Oral 480 Other: Voiding Method Toilet # Voids 2 3 GENERAL DESCRIPTION: Middle-aged female lying in bed, no distress. No tachypnea or accessory muscle of respiration use. HEENT: Shows Pallor , no scleral icterus. Oral mucous membrane is dry. No pharyngeal erythema or thrush NECK: Trachea central, no thyromegaly. Right-sided neck is currently dressed in OR dressing no drainage of the dressing LUNGS: Unlabored breathing. Clear to auscultation anteriorly. No wheeze or crackle. HEART: S1, S2, regular rate and rhythm. No loud murmur ABDOMEN: Soft, no tenderness , guarding or rigidity, no organomegaly EXTREMITIES: No edema of feet. SKIN: No rash, no masses palpable. NEUROLOGICAL: The patient is awake, alert, oriented x3, mood and affect normal. Results CBC & Chem 7: 12/17/19 07:35 12/17/19 07:35 Labs: Abnormal Lab Results - Last 24 Hours (Table) 07/27/20 07/29/20 07/29/20 Range/Units 09:57 07:35 07:35 WBC 11.6 H (3.8-10.6) k/uL RBC 3.10 L (3.80-5.40) m/uL Hgb 9.1 L (11.4-16.0) gm/dL Hct 28.8 L (34.0-46.0) % RDW 15.7 H (11.5-15.5) % Creatinine 0.40 L (0.52-1.04) mg/dL Hep C IgG Ab Reactive H (Non-Reactive) Microbiology - Last 24 Hours (Table) 12/14/19 12:11 Blood Culture - Preliminary Blood No Growth after 48 hours Assessment and Plan Assessment: 1- patient with a right-sided neck abscess from injection drug use status post surgical drainage would need to cover for the resistant gram-positive as well as gram-negative pathogen . The likely pathogen responsible for this abscess from injection drug use (1) Neck abscess Current Visit: Yes Status: Acute Code(s): L02.11 - CUTANEOUS ABSCESS OF NECK SNOMED Code(s): 2329673 (2) Polysubstance abuse Current Visit: No Status: Acute Code(s): F19.10 - OTHER PSYCHOACTIVE SUBSTANCE ABUSE, UNCOMPLICATED SNOMED Code(s): 169468978 Plan: 1- Vancomycin pharmacy to dose target trough of 15 while watching her kidney function and Vanco trough closely 2- discontinue Zosyn and add cefepime to cover for the gram-negative to decrease risk of nephrotoxicity We will follow on clinical condition and cultures to further adjust medication if needed Thank you for this consultation will follow this patient with you
[2019-12-18] MEDS: ACETAMINOPHEN TAB 325 MG TAB PO PRN ×3 (01:52→18:21)
[2019-12-18] MEDS: PIPERACILLIN-TAZOBACTAM 3.375 GM in SODIUM CHLORIDE 0.9% 100 ML IVPB SCH ×2 (06:48→07:46)
[2019-12-18] MEDS: VANCOMYCIN 1,250 MG in SODIUM CHLORIDE 0.9% 250 ML IVPB SCH ×3 (06:49→21:38)
[2019-12-18] MEDS: ENOXAPARIN 40 MG/0.4 ML SYRINGE SQ SCH (07:45)
[2019-12-18] MEDS: CALCIUM CARBONATE LIQUID 500 MG/5 ML CUP PO SCH ×4 (07:45→20:37)
[2019-12-18] MEDS ORDERED: CEFEPIME 2 GM in SODIUM CHLORIDE 0.9% 100 ML IVPB ONE (09:00)
--- NOTE | 2019-12-18 10:59 | P.PN ---
Subjective Progress Note Date: 12/18/19 Patient seen and examined at the bedside. Patient was sitting up in the recliner. States she tolerated breakfast fine. No difficulties with swallowing. She does state that she has quite a bit of pain in the incisional area. States that Tylenol is not helping much. She denies any nausea vomiting, denies any chills or shortness of breath. She's been afebrile through the night with no acute changes. Dressing is intact. Objective - Vital Signs Vital signs: Vital Signs Temp 98.5 F 12/18/19 07:00 Pulse 91 12/18/19 07:00 Resp 18 12/18/19 07:00 BP 101/63 12/18/19 07:00 Pulse Ox 97 12/18/19 07:00 Intake & Output 12/17/19 12/18/19 12/18/19 18:59 06:59 18:59 Intake Total 1110 510 Output Total 10 Balance 1100 510 Intake: IV 850 Intake, IV Titration 260 510 Amount Piperacillin-Tazobactam 3 100 100 .375 gm In Sodium Chloride 0.9% 100 ml @ 25 mls/hr IVPB Q8HR [facility] Rx# :[id number] Sodium Chloride 0.9% 1, 160 160 000 ml @ 20 mls/hr IV . Q24H [facility] Rx#:[id number] Vancomycin 1,250 mg In 250 Sodium Chloride 0.9% 250 ml @ 125 mls/hr IVPB Q8H [facility] Rx#:[id number] Output: Estimated Blood Loss 10 Other: Voiding Method Toilet Toilet # Voids 3 1 - Exam General appearance: The patient is alert, oriented, in no acute distress. HET: Head is normocephalic and atraumatic. Neck: Supple without lymphadenopathy. Trachea midline. Dressing was intact and removed with small to moderate amount of dry sanguinous drainage. Incision is clean dry and intact with [place] drain. Surgical site was redressed with sterile 4 x 4 and paper tape. Patient does have redness surrounding the incision site from the adhesive, which was removed. Heart: S1 S2. Regular rate and rhythm. Lungs: No crackles or wheezes are heard. Extremities: Normal skin color and turgor. No cyanosis, rash, ulceration, clubbing, or edema. Radial and pedal pulses are 2/4 bilaterally. Neurological: No focal deficits. Strength and sensation are grossly intact. - Labs CBC & Chem 7: 12/17/19 07:35 12/17/19 07:35 Labs: Microbiology - Last 24 Hours (Table) 12/17/19 13:36 Gram Stain - Preliminary Neck Wound Culture - Preliminary 12/17/19 13:36 Anaerobic Culture - Preliminary Neck 12/14/19 12:11 Blood Culture - Preliminary Blood No Growth after 72 hours Assessment and Plan Assessment: 1. Right sided Neck abcess 2. IV Drug use 3. Leukocytosis 4. Intrauterine , approximately 12 weeks Plan: Surgical dressing was removed. New dressing applied with paper tape. Did discuss with Dr. Colmenares regarding adding Tylenol 3 every 8 hours as needed for breakthrough pain. Only give as needed, use regular strength Tylenol if able. Continue with IV antibiotic recommendations from infectious disease. Cultures are pending. The above dictated assessment and findings were discussed with Dr. Colmenares. The impression and plan of care have been directed as dictated.
[2019-12-18] MEDS: SODIUM CHLORIDE 0.9% 1,000 ML IV SCH (12:22)
[2019-12-18] MEDS: Acetaminophen-Codeine 300-30mg TAB PO PRN ×2 (12:29→20:36)
[2019-12-18 13:52] VITALS: RESP 16
--- NOTE | 2019-12-18 16:47 | P.PN ---
Progress Note - Text Progress Note Date: 12/18/19 Presenting complaint: Painful mass in the right neck Interval history: From the records: 34-year-old female with PMH of IV drug abuse, heroin user, 15 weeks as per patient presents to the ED for swelling in right neck. Patient noticed swelling in the right side of her neck since yesterday. When the swelling doubled in size this morning this prompted the patient to come to the ED. Patient reports a vague neck pain for the past week aggravated with movement of her neck. She denies any headache, lower extremity edema, nausea or vomiting, fever or chills, cough, chest pain, shortness of breath, palpitations, changes in urination or bowel habits. Patient reports history of IV drug use, typically injects in the area of swelling but stopped on December 02. Patient states that she was on methadone for a couple of days and denies any withdrawal symptoms. She has not even following with OB regarding her . Patient states that she plans on terminating her and has been going to family planning. In the ED, her vital signs are stable. CBC showed leukocytosis of 11.2. Hemoglobin is 11.1. Platelet count is 478. CMP showed chloride of 110, bicarbonate 18, creatinine 0.41. Of the neck shows large left-sided mass paralleling the course of the right internal jugular vein with questionable origin. Patient is admitted for swelling in her neck, IV antibiotics and ENT/vascular surgery evaluation. Taken to the [id number] multiple loci off abscesses were evacuated. [place] drains was placed. Today-sitting up in bed. Did eat food.. Pain control.. Review of systems: Was done for constitutional, cardiovascular, GI, pulmonary. relevant finding as above Active Medications Acetaminophen (Tylenol Tab) 650 mg PO Q6HR PRN PRN Reason: Mild Pain or Fever > 100.5 Last Admin: 12/18/19 07:45 Dose: 650 mg Documented by: Acetaminophen/Codeine Phosphate (Tylenol #3) 1 each PO Q8HR PRN PRN Reason: Pain Last Admin: 12/18/19 12:29 Dose: 1 each Documented by: Calcium Carbonate/Glycine (Tums Liquid) 500 mg PO ACHS [facility] Last Admin: 12/18/19 12:22 Dose: 500 mg Documented by: Enoxaparin Sodium (Lovenox) 40 mg SQ DAILY [facility] Last Admin: 12/18/19 07:45 Dose: 40 mg Documented by: Sodium Chloride (Saline 0.9%) 1,000 mls @ 20 mls/hr IV .Q24H [facility] Last Admin: 12/18/19 12:22 Dose: 20 mls/hr Documented by: Vancomycin HCl 1,250 mg/ (Sodium Chloride) 250 mls @ 125 mls/hr IVPB Q8H [facility] Last Admin: 12/18/19 12:22 Dose: 125 mls/hr Documented by: Cefepime HCl 2 gm/ Sodium (Chloride) 100 mls @ 25 mls/hr IVPB Q12HR [facility] Naloxone HCl (Narcan) 0.2 mg IV Q2M PRN PRN Reason: Opioid Reversal On examination: VITAL SIGNS: 99.1, 88, 16, 101/64, 100% room air GENERAL APPEARANCE: Sitting up HEENT: Normal external appearance of nose and ear. Oral cavity normal EYES: Pupils equal. Conjunctiva normal. NECK: Dressing over the right neck with a [place] drain RESPIRATORY: Respiratory effort normal. Lungs clear to auscultation. CARDIOVASCULAR: First and second sounds normal. No edema. ABDOMEN: Soft. Liver and spleen not palpable. No tenderness. No mass palpable. PSYCHIATRY: Alert and oriented x3. Mood and affect normal. Investigations: White count 11.6 hemoglobin 9.1 pro calcitonin 0.06 Wound cultures pending Previous testing White count 12.9 hemoglobin 9.8 COVID 19 PCR-not detected Computed tomography scan soft tissue neck-large right-sided neck mass battling the course of internal jugular vein. Ultrasound thyroid soft tissue head and neck-multiloculated complex mass seen in the right neck between the carotid artery and vein. Mass has internal vascular flow. hepatitis C IgG antibody reactive MRI of the neck-suspect abscess blood culture negative, Assessment: -Right-sided deep neck abscess from IV drug abuser, status open post I&D-[place] drain in place-cultures pending -11 week intrauterine , the patient has expressed it to be terminated voluntarily -IV heroin drug abuser -Normocytic anemia from above chronic inflammation Plan: Continue his IV vancomycin and Zosyn.await culture results. Discussed with the patient. Discussed with Dr. Colmenares.
--- NOTE | 2019-12-18 17:24 | PN ---
PROGRESS NOTE DATE OF SERVICE: 12/18/2019 REASON FOR FOLLOWUP: Right neck abscess from injection drug use. INTERVAL HISTORY: Patient is currently afebrile. Overall pain, discomfort to the right side of the neck is currently controlled. The patient denies having any chest pain. No shortness of breath or cough. No nausea, no vomiting. No abdominal pain, no diarrhea. PHYSICAL EXAMINATION: Blood pressure 101/63 with a pulse of 90, temperature 98.5, she is 97% room air. General description is a middle-aged female, up in the chair in no distress. HEENT: Examination right-sided neck abscess area is currently dressed. LUNGS: Unlabored breathing and is clear to auscultation anteriorly. HEART: S1, S2. Regular rate and rhythm. ABDOMEN: Soft, no tenderness. LABS: Hemoglobin is 9.1, white count 11.6, creatinine 0.40. DIAGNOSTIC IMPRESSION AND PLAN: Patient with right neck abscess from injection drug use, status post surgical drainage. Cultures currently pending. Patient is covered with cefepime and vancomycin to continue. Will try to arrange for outpatient oral medications in case the abscess is found to be MRSA. Continue supportive care. MMODL / IJN: [id number] /
[2019-12-18] MEDS: CEFEPIME 2 GM in SODIUM CHLORIDE 0.9% 100 ML IVPB SCH (20:36)
[2019-12-19] MEDS: VANCOMYCIN 1,250 MG in SODIUM CHLORIDE 0.9% 250 ML IVPB SCH ×3 (04:32→20:57)
[2019-12-19] MEDS: Acetaminophen-Codeine 300-30mg TAB PO PRN ×3 (04:35→20:56)
[2019-12-19] MEDS: ENOXAPARIN 40 MG/0.4 ML SYRINGE SQ SCH (08:11)
[2019-12-19] MEDS: CALCIUM CARBONATE LIQUID 500 MG/5 ML CUP PO SCH ×4 (08:11→20:56)
[2019-12-19 08:50] LABS: Anisocytosis Slight; HCT 29.9 % (34.0-46.0); HGB 9.4 gm/dL (11.4-16.0); MCH 29.1 pg (25.0-35.0); MCHC 31.3 g/dL (31.0-37.0); MCV 92.9 fL (80.0-100.0); Mean Platelet Volume 7.1; Platelet Count 326 k/uL (150-450); RBC 3.22 m/uL (3.80-5.40); RDW 16.2 % (11.5-15.5); WBC 8.9 k/uL (3.8-10.6)
[2019-12-19] MEDS: CEFEPIME 2 GM in SODIUM CHLORIDE 0.9% 100 ML IVPB SCH ×2 (10:44→23:05)
[2019-12-19] MEDS: SODIUM CHLORIDE 0.9% 1,000 ML IV SCH (10:44)
--- NOTE | 2019-12-19 12:55 | P.PN ---
Subjective Progress Note Date: 12/19/19 Patient was seen and examined at the bedside. She denies any acute changes through the night. She denies any fever or chills. Pain is improving some. Patient's IV site was lost throughout the night. CVL is at bedside to restart peripheral access. Dressing is clean dry and intact. Objective - Vital Signs Vital signs: Vital Signs Temp 99.2 F 12/19/19 07:52 Pulse 91 12/19/19 07:52 Resp 16 12/19/19 07:52 BP 102/66 12/19/19 07:52 Pulse Ox 98 12/19/19 07:52 Intake & Output 12/18/19 12/19/19 12/19/19 18:59 06:59 18:59 Intake Total 350 Balance 350 Intake: Intake, IV Titration 350 Amount Cefepime 2 gm In Sodium 100 Chloride 0.9% 100 ml @ 200 mls/hr IVPB ONCE [facility] Rx#:[id number] Vancomycin 1,250 mg In 250 Sodium Chloride 0.9% 250 ml @ 125 mls/hr IVPB Q8H [facility] Rx#:[id number] Other: # Voids 2 - Exam General appearance: The patient is alert, oriented, in no acute distress. HET: Head is normocephalic and atraumatic. Neck: Supple without lymphadenopathy. Trachea midline. Dressing with small to moderate amount of purlulent drainage from gwendol[place] drain. Surgical site was redressed with sterile 4 x 4 and paper tape, [place] drain remains intact and patent. Heart: S1 S2. Regular rate and rhythm. Lungs: No crackles or wheezes are heard. Extremities: Normal skin color and turgor. No cyanosis, rash, ulceration, clubbing, or edema. Radial and pedal pulses are 2/4 bilaterally. Neurological: No focal deficits. Strength and sensation are grossly intact. - Labs CBC & Chem 7: 12/19/19 07:54 12/17/19 07:35 Labs: Abnormal Lab Results - Last 24 Hours (Table) 12/19/19 Range/Units 07:54 RBC 3.22 L (3.80-5.40) m/uL Hgb 9.4 L (11.4-16.0) gm/dL Hct 29.9 L (34.0-46.0) % RDW 16.2 H (11.5-15.5) % Microbiology - Last 24 Hours (Table) 12/17/19 13:36 Gram Stain - Preliminary Neck Wound Culture - Preliminary 12/14/19 12:11 Blood Culture - Preliminary Blood No Growth after 96 hours Assessment and Plan Assessment: 1. Right sided Neck abcess 2. IV Drug use 3. Leukocytosis 4. Intrauterine , approximately 12 weeks Plan: Continue with IV antibiotics per recommendations from infectious disease. Wound cultures pending. We will keep [place] drain in overnight. Patient to follow- up with Dr. Colmenares next week in office. The above dictated assessment and findings were discussed with Dr. Youssef. The impression and plan of care have been directed as dictated.
[2019-12-19 13:28] VITALS: BMI 21.7
--- NOTE | 2019-12-19 23:07 | P.PN ---
Progress Note - Text Progress Note Date: 12/19/19 Presenting complaint: Painful mass in the right neck Interval history: From the records: 34-year-old female with PMH of IV drug abuse, heroin user, 15 weeks as per patient presents to the ED for swelling in right neck. Patient noticed swelling in the right side of her neck since yesterday. When the swelling doubled in size this morning this prompted the patient to come to the ED. Patient reports a vague neck pain for the past week aggravated with movement of her neck. She denies any headache, lower extremity edema, nausea or vomiting, fever or chills, cough, chest pain, shortness of breath, palpitations, changes in urination or bowel habits. Patient reports history of IV drug use, typically injects in the area of swelling but stopped on December 02. Patient states that she was on methadone for a couple of days and denies any withdrawal symptoms. She has not even following with OB regarding her . Patient states that she plans on terminating her and has been going to family planning. In the ED, her vital signs are stable. CBC showed leukocytosis of 11.2. Hemoglobin is 11.1. Platelet count is 478. CMP showed chloride of 110, bicarbonate 18, creatinine 0.41. Of the neck shows large left-sided mass paralleling the course of the right internal jugular vein with questionable origin. Patient is admitted for swelling in her neck, IV antibiotics and ENT/vascular surgery evaluation. Taken to the [id number] multiple loci off abscesses were evacuated. [place] drains was placed. Today-pain swelling improving. feeling better. Eating better... Getting IV antibiotics. More cheerful. [place] drain removed Review of systems: Was done for constitutional, cardiovascular, GI, pulmonary. relevant finding as above Active Medications Acetaminophen (Tylenol Tab) 650 mg PO Q6HR PRN PRN Reason: Mild Pain or Fever > 100.5 Last Admin: 12/18/19 18:21 Dose: 650 mg Documented by: Acetaminophen/Codeine Phosphate (Tylenol #3) 1 each PO Q8HR PRN PRN Reason: Pain Last Admin: 12/19/19 20:56 Dose: 1 each Documented by: Calcium Carbonate/Glycine (Tums Liquid) 500 mg PO ACHS [facility] Last Admin: 12/19/19 20:56 Dose: 500 mg Documented by: Enoxaparin Sodium (Lovenox) 40 mg SQ DAILY [facility] Last Admin: 12/19/19 08:11 Dose: 40 mg Documented by: Sodium Chloride (Saline 0.9%) 1,000 mls @ 20 mls/hr IV .Q24H [facility] Last Admin: 12/19/19 10:44 Dose: 20 mls/hr Documented by: Vancomycin HCl 1,250 mg/ (Sodium Chloride) 250 mls @ 125 mls/hr IVPB Q8H [facility] Last Admin: 12/19/19 20:57 Dose: 125 mls/hr Documented by: Cefepime HCl 2 gm/ Sodium (Chloride) 100 mls @ 25 mls/hr IVPB Q12HR [facility] Last Admin: 12/19/19 10:44 Dose: 25 mls/hr Documented by: Naloxone HCl (Narcan) 0.2 mg IV Q2M PRN PRN Reason: Opioid Reversal On examination: VITAL SIGNS: 98.7, 88, 16, 99 Basuki 7, 96% room air GENERAL APPEARANCE: Sitting up in a chair, eating feeling better HEENT: Normal external appearance of nose and ear. Oral cavity normal EYES: Pupils equal. Conjunctiva normal. NECK: Dressing over the right neck n RESPIRATORY: Respiratory effort normal. Lungs clear to auscultation. CARDIOVASCULAR: First and second sounds normal. No edema. ABDOMEN: Soft. Liver and spleen not palpable. No tenderness. No mass palpable. PSYCHIATRY: Alert and oriented x3. Mood and affect normal. Investigations: White count 11.6 hemoglobin 9.1 pro calcitonin 0.06 Wound cultures pending Previous testing White count 12.9 hemoglobin 9.8 COVID 19 PCR-not detected Computed tomography scan soft tissue neck-large right-sided neck mass battling the course of internal jugular vein. Ultrasound thyroid soft tissue head and neck-multiloculated complex mass seen in the right neck between the carotid artery and vein. Mass has internal vascular flow. hepatitis C IgG antibody reactive MRI of the neck-suspect abscess blood culture negative, Assessment: -Right-sided deep neck abscess from IV drug abuser, status open post I&D-[place] drain in place-cultures pending -11 week intrauterine , the patient has expressed it to be terminated voluntarily -IV heroin drug abuser -Normocytic anemia from above chronic inflammation Plan: Continue current medication treatment plan. Dr. Tse arranging for outpatient antibiotics. Of course the concern is sending the patient home with any IV access. Clinically improving.
--- NOTE | 2019-12-19 23:24 | PN ---
PROGRESS NOTE DATE OF SERVICE: 12/19/2019 REASON FOR FOLLOWUP: Right neck abscess from IV drug use. INTERVAL HISTORY: The patient is currently afebrile. The patient is breathing comfortably. The patient denies having any chest pain or shortness of breath or cough. Overall pain and discomfort to the right side of the neck have decreased. PHYSICAL EXAMINATION: Blood pressure is 99/67, pulse of 80, temperature 98.7. She is 96% on room air. General description is a middle-aged female up in the chair in no distress. HEENT EXAMINATION: The neck area swelling and redness have improved. No drainage on the dressing. LUNGS: Unlabored breathing. Clear to auscultation anteriorly. HEART: S1, S2. Regular rate and rhythm. ABDOMEN: Soft. No tenderness. LABS: Hemoglobin 9.4, white count 8.9, creatinine 0.40. Cultures so far pending. DIAGNOSTIC IMPRESSION AND PLAN: Patient with neck abscess from IV drug use, status post surgical drainage. Cultures are currently pending. Continue with cefepime and vancomycin. Hopefully will be able to finish therapy with oral antibiotics. Continue with supportive care. MMODL / IJN: [id number] /
[2019-12-20] MEDS: VANCOMYCIN 1,250 MG in SODIUM CHLORIDE 0.9% 250 ML IVPB SCH ×2 (04:36→12:12)
[2019-12-20] MEDS: Acetaminophen-Codeine 300-30mg TAB PO PRN ×2 (04:42→12:41)
[2019-12-20 07:54] VITALS: PULSE 86
[2019-12-20] MEDS: CEFEPIME 2 GM in SODIUM CHLORIDE 0.9% 100 ML IVPB SCH (07:56)
[2019-12-20] MEDS: CALCIUM CARBONATE LIQUID 500 MG/5 ML CUP PO SCH ×2 (07:56→12:12)
[2019-12-20] MEDS: ENOXAPARIN 40 MG/0.4 ML SYRINGE SQ SCH (07:56)
[2019-12-20] MEDS: SODIUM CHLORIDE 0.9% 1,000 ML IV SCH (10:13)
--- NOTE | 2019-12-20 11:51 | P.PN ---
Subjective Progress Note Date: 12/20/19 Principal diagnosis: Right neck abscess Patient was seen at bedside. Doing well this morning. Minimal drainage from the neck incision site around the drain. She denies any fevers, chills, chest pain or shortness of breath. Objective - Vital Signs Vital signs: Vital Signs Temp 98.6 F 12/20/19 07:35 Pulse 86 12/20/19 07:35 Resp 16 12/20/19 07:35 BP 95/59 12/20/19 07:35 Pulse Ox 97 12/20/19 07:35 Intake & Output 12/19/19 12/20/19 12/20/19 18:59 06:59 18:59 Intake Total 510 350 Balance 510 350 Weight 61.235 kg Intake: Intake, IV Titration 510 350 Amount Cefepime 2 gm In Sodium 100 100 Chloride 0.9% 100 ml @ 25 mls/hr IVPB Q12HR [facility] Rx #:[id number] Sodium Chloride 0.9% 1, 160 000 ml @ 20 mls/hr IV . Q24H [facility] Rx#:[id number] Vancomycin 1,250 mg In 250 250 Sodium Chloride 0.9% 250 ml @ 125 mls/hr IVPB Q8H [facility] Rx#:[id number] Other: Voiding Method Toilet Toilet # Voids 2 - Exam Right neck incision is clean, dry and intact. Minimal serosanguineous drainage noted. No abscess. Minimal edema - Constitutional General appearance: Present: cooperative, no acute distress - EENT Eyes: Present: PERRLA - Cardiovascular Rhythm: regular - Neurologic Neurologic: Present: CNII-XII intact - Psychiatric Psychiatric: Present: A&O x's 3, appropriate affect, intact judgment & insight - Labs CBC & Chem 7: 12/19/19 07:54 12/17/19 07:35 Labs: Microbiology - Last 24 Hours (Table) 12/17/19 13:36 Anaerobic Culture - Preliminary Neck 12/17/19 13:36 Gram Stain - Final Neck Wound Culture - Final 12/14/19 12:11 Blood Culture - Preliminary Blood No Growth after 120 hours Assessment and Plan Assessment: #1 right side neck abscess status post I&D #2 IV drug abuse #3 leukocytosis #4 intrauterine Plan: IV antibiotics per infectious disease. Wound culture still pending. [place] drain is removed at bedside without complications. Follow up with Dr. Colmenares next week in the office once antibiotics are confirmed for outpatient
--- NOTE | 2019-12-20 14:26 | PN ---
PROGRESS NOTE DATE OF SERVICE: 12/20/2019 REASON FOR FOLLOW UP: Right neck abscess. INTERVAL HISTORY: Patient is currently afebrile. The patient is feeling better. Breathing comfortably. Overall pain and discomfort to the right side of the neck has improved. No chest pain or cough. No abdominal pain. No diarrhea. PHYSICAL EXAMINATION: Blood pressure is 95/59 with a pulse of 83, temperature 98.6. She is 97% on room air. General description is a middle-aged female up in the chair in no distress. Respiratory system: Unlabored breathing. Clear to auscultation anteriorly. Heart S1, S2. Regular rate and rhythm. Abdomen soft. No tenderness. Neck I and D site is currently dressed with no drainage on the dressing. LABS: White count normal at 8.9. Cultures have been negative so far. DIAGNOSTIC IMPRESSION AND PLAN: Patient with right side neck abscess from IV drug use, status post drainage. Culture has been negative. Plan is to finish therapy with Bactrim DS one twice a day for 7 days. The patient is scheduled to determine her as of this Sunday that is why Bactrim was suggested. Otherwise we would have gone with Keflex. Also discussed with the admitting physician. MMODL / IJN: [id number] /
[2019-12-20 14:46] VITALS: BP 105/70; TEMP 98.3
--- NOTE | 2019-12-20 19:16 | P.DS ---
Providers Date of admission: 12/14/19 12:01 Expected date of discharge: 12/20/19 Attending physician: Dequan Hearn Consults: 12/14/19 12:01 Consult Physician Routine Consulting Provider: Trace Ferrer Consult Reason/Comments: right neck mass Do you want consulting provider notified?: Yes 12/14/19 13:26 Consult Physician Routine Consulting Provider: Harinder Bray Consult Reason/Comments: neck mass vs hematoma (IVDU) Do you want consulting provider notified?: Yes 12/15/19 15:32 Consult Physician Routine Consulting Provider: Afia Muhammad Consult Reason/Comments: Patient 12-15wks preg, need clearance for MRI Do you want consulting provider notified?: Yes 12/16/19 23:06 Consult Physician Routine Consulting Provider: Pritesh Murry Consult Reason/Comments: neck abscess Do you want consulting provider notified?: Yes Primary care physician: [facility] Course: Presenting complaint: Painful mass in the right neck Interval history: From the records: 34-year-old female with PMH of IV drug abuse, heroin user, 15 weeks as per patient presents to the ED for swelling in right neck. Patient noticed swelling in the right side of her neck since yesterday. When the swelling doubled in size this morning this prompted the patient to come to the ED. Patient reports a vague neck pain for the past week aggravated with movement of her neck. She denies any headache, lower extremity edema, nausea or vomiting, fever or chills, cough, chest pain, shortness of breath, palpitations, changes in urination or bowel habits. Patient reports history of IV drug use, typically injects in the area of swelling but stopped on December 02. Patient states that she was on methadone for a couple of days and denies any withdrawal symptoms. She has not even following with OB regarding her . Patient states that she plans on terminating her and has been going to family planning. In the ED, her vital signs are stable. CBC showed leukocytosis of 11.2. Hemoglobin is 11.1. Platelet count is 478. CMP showed chloride of 110, bicarbonate 18, creatinine 0.41. Of the neck shows large left-sided mass paralleling the course of the right internal jugular vein with questionable origin. Patient is admitted for swelling in her neck, IV antibiotics and ENT/vascular surgery evaluation. Taken to the [id number] multiple loci off abscesses were evacuated. [place] drains was placed. Today-[place] drain was removed not yesterday but today by Dr. bray Patient feeling well. Eating well. No fever no chills. Patient's cultures came back negative. Discussed with Dr. Tse. Given history of IVDA will cover empirically for MRSA and the cultures are negative. Patient to follow-up with GI regarding her hepatitis C IgG antibody positive. Discussion and discharge planning more than 35 minutes On examination: VITAL SIGNS: 98.3, 86, 16, 105/70, 99% room air GENERAL APPEARANCE: Sitting up in a chair, comfortable HEENT: Normal external appearance of nose and ear. Oral cavity normal EYES: Pupils equal. Conjunctiva normal. NECK: Right neck incision healing well RESPIRATORY: Respiratory effort normal. Lungs clear to auscultation. CARDIOVASCULAR: First and second sounds normal. No edema. ABDOMEN: Soft. Liver and spleen not palpable. No tenderness. No mass palpable. PSYCHIATRY: Alert and oriented x3. Mood and affect normal. Investigations: White count 8.9 and hemoglobin 9.4 pro calcitonin 0.06 Wound cultures-negative Previous testing White count 12.9 hemoglobin 9.8 COVID 19 PCR-not detected Computed tomography scan soft tissue neck-large right-sided neck mass battling the course of internal jugular vein. Ultrasound thyroid soft tissue head and neck-multiloculated complex mass seen in the right neck between the carotid artery and vein. Mass has internal vascular flow. hepatitis C IgG antibody reactive MRI of the neck-suspect abscess blood culture negative, Assessment: -Right-sided deep neck abscess from IV drug abuser, status open post I&D-[place] drain removed, cultures negative -11 week intrauterine , the patient has expressed it to be terminated voluntarily -IV heroin drug abuser -Normocytic anemia from above chronic inflammation -Hepatitis C IgG antibody reactive Disposition: Home Patient Condition at Discharge: Stable Plan - Discharge Summary Discharge Rx Participant: Yes New Discharge Prescriptions: New Acetaminophen Tab [Tylenol] 650 mg PO Q6HR PRN tab PRN Reason: Mild Pain Or Fever > 100.5 Sulfamethox-Tmp 800-160Mg [Bactrim DS 800-160 mg] 1 tab PO Q12HR #20 tab Discontinued Ibuprofen [Motrin Ib] 200 mg PO Q8H PRN PRN Reason: Pain Or Fever > 100.5 Amoxicillin 500 mg PO ONCE Discharge Medication List Acetaminophen Tab [Tylenol] 650 mg PO Q6HR PRN tab 12/20/19 [Rx] Sulfamethox-Tmp 800-160Mg [Bactrim DS 800-160 mg] 1 tab PO Q12HR #20 tab 12/20/19 [Rx] Follow up Appointment(s)/Referral(s): Morena Colmenares DO [STAFF PHYSICIAN] - 1 Week MID,Infusion [NON-STAFF] - Domingo Ellison MD [Primary Care Provider] - 12/18/19 10:45 am Activity/Diet/Wound Care/Special Instructions: If patient is discharged over the weekend (12/19 or 12/21/19) - call the weekend gearcase assembler to arrange for an appointment for outpatient IV antibiotics dc abx per dr murry Discharge Disposition: HOME SELF-CARE
[2019-12-20] MEDS ORDERED: VANCOMYCIN TROUGH DUE 1 EACH MISC MISCELLANE ONE (20:00)
== END 2019-12-20 16:17 | disposition home or self-care (01) | DRG 501 ==
LOC: EC 08:30 → 4SSUR 12:01
PROVIDERS: ADMIT Hospitalist; ATTEND Hospitalist
PROC: 0K9200Z Drainage of Right Neck Muscle with Drainage Device, Open Approach (ICD-10-PCS; principal; 2019-12-17 13:00)
DX: M60.08 Infective myositis, other site (principal); O98.811 Other maternal infectious and parasitic diseases complicating pregnancy, first trimester; O99.321 Drug use complicating pregnancy, first trimester; O99.111 Other diseases of the blood and blood-forming organs and certain disorders involving the immune mechanism complicating pregnancy, first trimester; O98.411 Viral hepatitis complicating pregnancy, first trimester; F11.10 Opioid abuse, uncomplicated; B19.20 Unspecified viral hepatitis C without hepatic coma; F19.10 Other psychoactive substance abuse, uncomplicated; D64.9 Anemia, unspecified; D72.829 Elevated white blood cell count, unspecified; O99.011 Anemia complicating pregnancy, first trimester; Z3A.12 12 weeks gestation of pregnancy; D47.3 Essential (hemorrhagic) thrombocythemia; Z53.9 Procedure and treatment not carried out, unspecified reason; Z86.79 Personal history of other diseases of the circulatory system; Z87.891 Personal history of nicotine dependence; Z86.14 Personal history of Methicillin resistant Staphylococcus aureus infection; Z11.59 Encounter for screening for other viral diseases
CPT/HCPCS: 36410; 36415; 70490; 70540; 76536; 76937; 80053; 80074; 80202; 82565; 82728; 83540; 83550; 84145; 84443; 85025; 85027; 86140; 87040; 87070; 87075; 87205; 96365; 99284

== ENCOUNTER → 2021-08-04 | Outpatient (CLI) | payer OTHER | END | disposition home or self-care (01) | LOC: LABWHC1 13:29 | PROVIDERS: ATTEND Physician Assistant | DX: N91.2 Amenorrhea, unspecified (principal) | CPT/HCPCS: 36415; 84702 ==

== ENCOUNTER → 2024-04-25 | Outpatient (CLI) | payer OTHER ==
--- NOTE | 2024-04-25 08:22 | US ---
EXAMINATION TYPE: US kidneys/renal and bladder DATE OF EXAM: 04/25/2024 COMPARISON: NONE CLINICAL INDICATION: Female, 39 years old with history of N39.0 URINARY TRACT INFECTION, SITE NOT SPE CIFIED; Recurrent UTIs TECHNIQUE: Grayscale imaging of the bilateral kidneys and urinary bladder: FINDINGS: EXAM MEASUREMENTS: Right Kidney: 9.5x3.8x5.9 cm Left Kidney: 9.9x5.7x5.0 cm Right Kidney: wnl, no evidence for hydronephrosis, mass or renal calculus. Left Kidney: wnl, no evidence for hydronephrosis, mass or renal calculus. Bladder: wnl, as best visualized. Not fully distended There is no evidence for hydronephrosis at this point in time. No nephrolithiasis is seen. No shanice s are identified. The urinary bladder is anechoic. IMPRESSION: 1. No evidence for acute process. 2. Urinary bladder is incompletely distended. No obvious abnormality. [facility], , 04/25/2024 8:20 AM
== END | disposition home or self-care (01) ==
LOC: RADUSWWP 07:19
PROVIDERS: ATTEND Obstetrics & Gynecology
DX: N39.0 Urinary tract infection, site not specified (principal); N32.89 Other specified disorders of bladder
CPT/HCPCS: 76770